=== PATIENT | female | born 1970 | race Caucasian/White ===

== ENCOUNTER 2016-11-18 19:28 | Inpatient (IN) | payer MEDICARE, MEDICAID ==
--- NOTE | 2016-11-18 19:49 | ED Physician Chart ---
Chief Complaint/HPI - Patient Information Date Seen:: 11/18/16 Time Seen:: 19:30 Chief Complaint:: Syncope History of Present Illness:: onset x one day of near-syncope and syncope episodes with vertigo and dizziness ; pt denies H/As, Neck Pain, C/P, SOB, Abd. Pain, A/N/V/D/C, fever, chills, or urinary s/s Allergies:: Allergies Allergy/AdvReac Type Severity Reaction Status Date / Time NSAIDS (Non-Steroidal AdvReac Verified 11/18/16 19:31 Anti-Inflamma Penicillins [PCN] AdvReac Verified 11/18/16 19:31 Vitals:: Vital Signs - 8 hr 11/18/16 19:31 Temp 97.2 F HR 83 RR 15 BP 122/70 O2 Sat % 97 Historian:: Patient, EMS Review:: Nurse's Note Reviewed, Old Chart Reviewed, EMS run form Reviewed, Transfer documents Reviewed Review of Systems - Review of Systems General/Constitutional: Fever, Chills, No weight loss, Weakness, No diaphoresis , No edema, No loss of appetite Skin: No skin lesions, No rash, No bruising Head: Headache, Light headed Eyes: No loss of vision, No pain, No diplopia ENT: No earache, No nasal drainage, No sore throat, No tinnitus Neck: No neck pain, No swelling, No thyromegaly, No stiffness, No mass noted Cardio Vascular: Chest pain, Palpitations, No PND, No orthopnea, No edema Pulmonary: No SOB, Cough, No sputum, No wheezing GI: Nausea, Vomiting, Diarrhea, No pain, No melena, No hematochezia, Constipation, No hematemesis G/U: No dysuria, No frequency, No hematuria [employer]: No vaginal discharge, No abnormal vaginal bleed, No contraction Musculoskeletal: No bone or joint pain, No back pain, No muscle pain Endocrine: No polyuria, No polydipsia Psychiatric: Prior psych history, Depression, Anxiety, No suicidal ideation, No homicidal ideation, Auditory hallucination, Visual hallucination Hematopoietic: No bruising, No lymphadenopathy Allergic/Immuno: No urticaria, No angioedema Neurological: Syncope, No focal symptoms, Weakness, No paresthesia, Headache, Seizure, Dizziness, No confusion, Vertigo Past Medical History - Past Medical History Obtainable: Yes Past Medical History: HTN, Seizures, Thyroid disorder, Other (Parkinson's disease; Glaucoma) Family History: Diabetes Melitus, HTN Social History: Non Smoker, No Alcohol, No Drug Use, Care Facility Surgical History: None Psychiatricy History: Depression, Schizophrenia, Bipolar Medication: Reviewed Family Medical History - Family Member Mother History Unknown: Yes Physical Exam - Physical Examination General/Constitutional: Awake, Well-developed, well-nourished, Alert, No distress, GCS 15, Non-toxic appearing, Ambulatory Head: Atraumatic Eyes: Lids, conjuctiva normal, PERRL, EOMI Skin: Nl inspection, No rash, No skin lesions, No ecchymosis, Well hydrated, No lymphadenopathy ENMT: External ears, nose nl, Nasal exam nl, Lips, teeth, gums nl Neck: Nontender, Full ROM w/o pain, No JVD, No nuchal rigidity, No bruit, No mass, No stridor Respiratory: Nl effort/Exclusion, Clear to Auscultation, No Wheeze/Rhonchi/Rales Cardio Vascular: RRR, No murmur, gallop, rubs, NL S1 S2 GI: No tenderness/rebounding/guarding, No organomegaly, No hernia, Normal BS's, Nondistended, No mass/bruits, No McBurney tenderness : No CVA tenderness Extremities: No tenderness or effusion, Full ROM, normal strength in all extremities, No edema, Normal digits & nails Neuro/Psych: Alert/oriented, DTR's symmetric, Normal sensory exam, Normal motor strength, Judgement/insight normal, Mood normal, Normal gait, No focal deficits Misc: normal gait, Normal back, No paraspinal tenderness Labs/Radiology/EKG Results - Lab Results Results: Na+: 130; Glucose: 371 - Radiology Results Results: NAD - EKG Interpretations EKG Time:: 20:00 Rate & Rhythm: 80; NSR Comments:: non-specific st-t changes; inverted t- waves ED Septic Shock - . Is Septic Shock (SBP<90, OR Lactate>4 mmol\L) present?: No - <6hrs of presentation: Vital Signs: Vital Signs - 8 hr 11/18/ 19:31 Temp 97.2 F HR 83 RR 15 BP 122/70 O2 Sat % 97 Reassessment (Disposition) - Reassessment Reassessment Condition:: Improved - Diagnosis Diagnosis:: Dx: DM; uncontrolled Diabetes Mellitus; Hyperglycemia; Hyponatremia; Syncope; Near-Syncope - Aftercare/Follow up Instructions Aftercare/Follow-Up Instructions:: Counseled pt regarding lab results/diagnosis & need follow up, Counseled pt & family regarding lab results/diagnosis & need follow up - Patient Disposition Discharge/Transfer:: Acute Care w/in this hosp Accepting Physician:: Dr. Cruz Time Called:: 2249 Time Responded:: 22:50 Admitted to:: Telemetry Spoke to:: Dr. Cruz Admitting Medical Physician:: Dr. Cruz Condition at Disposition:: Stable, Improved
[2016-11-18 19:59] LABS: % BASOPHILS 0.7 % (0.0-2.0); % EOSINOPHILS 2.2 % (0.0-5.0); % LYMPHOCYTES 26.3 % (20.0-50.0); % MONOCYTES 7.4 % (2.0-10.0); % NEUTROPHILS 63.4 % (40.0-80.0); HEMATOCRIT 40.9 % (35.0-45.0); HEMOGLOBIN 13.9 gm/dL (11.7-15.5); MEAN CELL VOLUME 88.5 fl (81-100); MEAN CORPUSCULAR HEMOGLOBIN 30.1 pg (27.0-31.0); MEAN PLATELET VOLUME 8.9 fl; NEUTROPHILE ABSOLUTE 4.8 Th/cmm (1.8-8.0); PLATELET COUNT 159 Th/cmm (150-400); RED BLOOD COUNT 4.62 Mil/cmm (3.80-5.10); RED CELL DISTRIBUTION WIDTH 12.1 % (11.5-20.0); WHITE BLOOD COUNT 7.7 Th/cmm (4.8-10.8)
[2016-11-18 20:08] LABS: INR 0.89 (0.5-1.4); PROTHROMBIN TIME (TEST) 9.2 SECONDS (9.5-11.5)
[2016-11-18 20:28] LABS: ALB/GLOB RATIO 0.8 (1.0-1.8); ALKALINE PHOSPHATASE 76 U/L (34-104); ANION GAP 13.2 (7.0-16.0); BILIRUBIN,TOTAL 0.4 mg/dL (0.3-1.0); BUN - UREA NITROGEN 8 mg/dL (7-25); CALCIUM SERUM 9.1 mg/dL (8.6-10.3); CARBON DIOXIDE 22.9 mEq/L (21.0-31.0); CHLORIDE 98 mEq/L (98-107); CHOLESTEROL 106 mg/dL (<200); CREATININE - SERUM 0.8 mg/dL (0.6-1.2); GLUCOSE 371 mg/dL (70-105); POTASSIUM SERUM 4.1 mEq/L (3.5-5.1); SGOT 13 U/L (13-39); SGPT/ALT 6 U/L (7-52); SODIUM SERUM 130 mEq/L (136-145); TRIGLYCERIDES 307 mg/dL (<150)
[2016-11-18 20:29] LABS: ACETAMINOPHEN < 10.0 ug/mL (10.0-30.0)
[2016-11-18 20:33] LABS: TROP I < 0.01 ng/mL (0.01-0.05)
[2016-11-18 20:49] LABS: URINE BILIRUBIN NEGATIVE (NEGATIVE); URINE BLOOD NEGATIVE (NEGATIVE); URINE GLUCOSE (UA) NEGATIVE (NEGATIVE); URINE KETONE NEGATIVE (NEGATIVE); URINE PROTEIN NEGATIVE (NEGATIVE); URINE UROBILINOGEN 0.2 E.U./dL (0.2 - 1.0)
[2016-11-18 20:51] LABS: BNP 35.7 pg/mL (5.0-100.0)
[2016-11-18 20:53] LABS: URINE BACTERIA NONE SEEN /hpf (NONE SEEN); URINE COLOR YELLOW; URINE EPITHELIAL CELLS NONE SEEN /lpf (FEW); URINE RBC NONE SEEN /hpf (0-5); URINE WBC NONE SEEN /hpf (0-5)
[2016-11-18 21:03] LABS: AMPHETAMINE URINE NEGATIVE (NEGATIVE); BARBITURATES URINE NEGATIVE (NEGATIVE); METHADONE URINE NEGATIVE (NEGATIVE)
[2016-11-18] MEDS ORDERED: INSULIN HUMAN REGULAR 100 UNITS/ML UNIT SUBQ ONE (22:12)
[2016-11-18] MEDS ORDERED: INSULIN HUMAN REGULAR 100 UNITS/ML UNIT ONE (22:25)
--- NOTE | 2016-11-19 03:44 | Admit Criteria Form ---
Admit Criteria Forms - Admit Criteria Diagnosis: SYNCOPE Clinical Indications for Admission to Inpatient Care ( Place 'X' for any and all applicable criteria): Admission is indicated for syncope and ANY ONE of the following (1)(2)(3)(4)(5) (6)(7) : [X ]I. Inpatient admission required rather than observation care (Also use Syncope: Observation Care Criteria as appropriate) because of ANY ONE of the following: [ ]a) Hemodynamic instability that is severe or persistent [ ]b) Cardiac arrhythmias of immediate concern identified or strongly suspected (eg, needs electrophysiologic study) [ ]c) Acute coronary syndrome identified (Also use Myocardial Infarction or Angina Criteria form ) [ ]d) Structural cardiac disorder (eg, aortic stenosis) suspected as cause that requires immediate correction [ ]e) Respiratory symptoms (eg, dyspnea, tachypnea) that are severe or persistent [ ]f) Neurologic signs or symptoms that are severe or persistent ( eg, stroke, seizures, altered mental status) [ ]g) Severe electrolyte abnormalities requiring inpatient care [ ]h) Supplemental oxygen or respiratory treatment for over 24 hrs that are performable only in acute inpatient setting [ ]i) IV fluid to replace significant ongoing (eg, for over 24 hrs ) losses (>3 L/m2 per day) [ ]j) Continuous intravenous infusion of anticoagulation, platelet inhibitor, vasoactive, or antiarrhythmic medication(15)(16) [ ]k) Pulmonary artery catheter monitoring [ ]l) Temporary pacemaker placement(17) [ ]m) Emergent cardioversion(18) [X ]n) Other conditions, treatment or monitoring requiring inpatient admission [ ]II. Suspicion of imminently dangerous cause (eg, rare causes like pericardial tamponade, pulmonary embolism) [ ]III. Syncope causing severe injury requiring hospitalization Extended stay beyond goal length of stay may be needed for(28) [ ]a) Dangerous arrhythmia(15)(23)(27)(29) [ ]b) Myocardial ischemia [ ]c) Seizure disorder [ ]d) Syncope-related injuries The original [facility] [employer] content created by [facility] has been revised. The portions of the content which have been revised are identified through the use of italic text or in bold, and [facility] has neither reviewed nor approved the modified material. All other unmodified content is copyright [facility]. Please see references footnoted in the original [facility] edition 2016 Admit Criteria Met?: Yes
[2016-11-19 04:29] VITALS: BP 127/75
[2016-11-19] MEDS: Levothyroxine 0.025 Mg Tab PO SCH (06:38)
[2016-11-19] MEDS: INSULIN ASPART SLIDING SCALE 100 UNITS/ML UNIT SUBQ SCH ×4 (06:44→21:21)
[2016-11-19 07:10] LABS: % BASOPHILS 0.6 % (0.0-2.0); % EOSINOPHILS 3.6 % (0.0-5.0); % LYMPHOCYTES 28.3 % (20.0-50.0); % MONOCYTES 10.7 % (2.0-10.0); % NEUTROPHILS 56.8 % (40.0-80.0); HEMATOCRIT 38.3 % (35.0-45.0); HEMOGLOBIN 13.2 gm/dL (11.7-15.5); MEAN CELL VOLUME 88.9 fl (81-100); MEAN CORPUSCULAR HEMOGLOBIN 30.7 pg (27.0-31.0); MEAN CORPUSCULAR HGB CONC 34.5 pg (28.0-36.0); MEAN PLATELET VOLUME 9.2 fl; NEUTROPHILE ABSOLUTE 4.1 Th/cmm (1.8-8.0); PLATELET COUNT 146 Th/cmm (150-400); RED BLOOD COUNT 4.31 Mil/cmm (3.80-5.10); RED CELL DISTRIBUTION WIDTH 12.2 % (11.5-20.0); WHITE BLOOD COUNT 7.3 Th/cmm (4.8-10.8)
--- NOTE | 2016-11-19 08:20 | Diagnostic Imaging Report ---
CT scan of the brain without intravenous contrast HISTORY: Syncope Total DLP equals CTDI equals Axial sections were obtained from the base of the skull the vertex. The exam is extremely limited and suboptimal due to excessive patient motion artifact. Poor visualization of the cerebellum and temporal lobe areas. Limited visualization of the cortical regions through the remainder of the brain. No obvious acute parenchymal abnormalities. Generalized enlargement of ventricular system and cerebral sulci reflecting atrophy. IMPRESSION: 1. Extremely limited exam due to patient motion artifact. 2. No obvious acute parenchymal abnormalities or mass effect. If possible, the exam should be repeated when the patient is compliant.
[2016-11-19] MEDS ORDERED: NORGESTIMATE ETHINYL ESTRADIOL PO SCH (09:00)
[2016-11-19] MEDS: Benztropine 1 MG TAB PO SCH (09:11)
--- NOTE | 2016-11-19 12:04 | History & Physical ---
ADMIT DATE: 11/19/2016 CHIEF COMPLAINT: Dizziness and syncope. HISTORY OF PRESENT ILLNESS: A 46-year-old female. She is a resident of [facility]. She stated that she was sent to the Emergency Room because she was placed on hold, though upon questioning the patient, she thinks she needs to be seen by psychiatrist. Upon further questioning and reviewing the chart, it has been noted that she has a history of psychotic disorder and she is taking multiple psychotropic medication, and she did have symptoms of near syncope and dizziness. The patient was worked up initially in the Emergency Room and subsequently admitted to the hospital for further treatment. I was aware that the patient was initially admitted by Dr. Chery and subsequently the patient is admitted under my service due to insurance purpose. The patient has been seen by Dr. Hilario and the patient was placed on hold for increased paranoia, angry, and verbal outbursts with delusions. PAST MEDICAL HISTORY: Remarkable for schizophrenia, glaucoma, SIADH, hypothyroidism along with Parkinson disease, and seizure disorder. MEDICATIONS AT THE TIME OF TRANSFER: The patient was taking multiple medications, which includes Tylenol, amantadine, Cogentin, Depakote, dorzolamide eyedrop, levothyroxine, propranolol, Risperdal, timolol, trazodone. ALLERGIES: THE PATIENT IS ALLERGIC TO NSAIDS. SOCIAL HISTORY: She lives in a detention. Does not smoke, does not drink. FAMILY MEDICAL HISTORY: Remarkable for diabetes and hypertension. REVIEW OF SYSTEMS: The patient currently denies any chest pain, shortness of breath, palpitations, dizziness, nausea, vomiting, diarrhea, dysuria, hematuria, hematochezia, melena. No history of any recent seizure or syncopal episode as per patient's account. PHYSICAL EXAMINATION: GENERAL: The patient is alert, awake, oriented, lying in the bed. VITAL SIGNS: Temperature 97.8, pulse is 78, respiratory rate 18, blood pressure 122/72. SKIN: Warm to touch. HEENT: Normocephalic, atraumatic. Extraocular muscles are intact. Tongue was pink and coated. Poor dentition noted. No oral lesion, no exudate. No sinus tenderness. External auditory canals and tympanic membranes are well visualized. NECK: Supple, no JVD, no hepatojugular reflux. No lymphadenopathy, thyromegaly or carotid bruit. HEART: Both heart sounds are regular. No S3, no S4, no murmur. CHEST: Lung equal in expansion, no wheezing, no crackles. ABDOMEN: Soft. No guarding, no rigidity. Liver, spleen palpable. No palpable mass. EXTREMITIES: No edema, no cyanosis. NEUROLOGIC: Alert, awake, oriented to time, place, person, 2-12 cranial nerves are intact. Power in upper and lower extremities 5+. Sensation to touch intact. [place] in both toes are going down. No cerebral sign. AVAILABLE DIAGNOSTIC DATA: Performed here in the Emergency Room was remarkable for blood sugar of 371 with glycohemoglobin ____ of 9.3. The patient is unaware that the patient is diabetic, otherwise her chemistry panels, electrolytes are within normal limits. Urinalysis is also negative. Urine drug screen is also negative. CLINICAL IMPRESSION: 1. Syncope, dizziness per Emergency Room MD. The patient stated that she does not have symptoms, very difficult to justify since the patient has significant amount of psychiatric history. The patient needs to be evaluated from a cardiac standpoint considering the patient's blood sugars are elevated and also she has Parkinson disease. In view of Parkinson disease, patients can have orthostatic hypotension and can cause them to have symptoms of dizziness as well. 2. Newly diagnosed diabetes mellitus. 3. Psychiatric disorder. 4. Hypothyroidism. 5. Hypertension. 6. Glaucoma. 7. Obesity. PLAN: The patient is admitted by me to telemetry unit. I will have Cardiology evaluation, as well as Neurology for evaluation of dizziness, syncopal episode. Psych to see the patient. Also we will start the patient on p.o. metformin along with diabetes education. Appropriate home medicine reconciliation. Psychiatrist to follow the patient. Glucoscan will be done. The patient will be followed by us and once the patient is cleared from medical standpoint, the patient will get the psychiatry treatment from Dr. Hilario. Care plan has been reviewed and discussed with staff as well. JOB# [id number]
[2016-11-19 14:41] LABS: ALB/GLOB RATIO 0.8 (1.0-1.8); ALKALINE PHOSPHATASE 63 U/L (34-104); ANION GAP 10.6 (7.0-16.0); BILIRUBIN,TOTAL 0.4 mg/dL (0.3-1.0); BUN - UREA NITROGEN 7 mg/dL (7-25); CALCIUM SERUM 9.1 mg/dL (8.6-10.3); CARBON DIOXIDE 24.5 mEq/L (21.0-31.0); CHLORIDE 97 mEq/L (98-107); CREATININE - SERUM 0.7 mg/dL (0.6-1.2); GLUCOSE 224 mg/dL (70-105); POTASSIUM SERUM 4.1 mEq/L (3.5-5.1); SGOT 13 U/L (13-39); SGPT/ALT 7 U/L (7-52); SODIUM SERUM 128 mEq/L (136-145)
--- NOTE | 2016-11-19 22:43 | Consultation ---
DATE OF CONSULTATION: 11/19/2016 PATIENT OF: Dr. Cruz. HISTORY AND PHYSICAL: This 46-year-old female patient who was transferred from [facility]. The patient apparently had near syncopal episode. The patient is psychotic and the patient is on medication for lot of psychiatric medication. No history of PND or orthopnea. PAST MEDICAL HISTORY: Schizophrenia, psychosis, glaucoma, SIADH, hypothyroid, Parkinson's disease, and seizure disorder. FAMILY HISTORY: Unremarkable. SOCIAL HISTORY: No history of smoking or alcohol abuse. ALLERGIES: No known allergies. PHYSICAL EXAMINATION: VITAL SIGNS: Blood pressure 130/80, pulse 70, respirations 20. HEAD: Normocephalic. No lumps or bumps. EYES: Pupils equal, reactive to light. Fundi show AV nicking, sclerae white, conjunctivae pink. NECK: Carotid 2+. Normal upstroke. JVD flat. Thyroid not palpable. Lymph nodes not palpable. CHEST: Shows increased AP diameter. No kyphosis, scoliosis. LUNGS: Bilateral bronchovesicular breath sounds, occasional wheeze, no rales. HEART: PMI fifth intercostal space lateral to midclavicular line. S1, S2. No S3, S4, soft systolic murmur. ABDOMEN: Soft. Liver, spleen not palpable. No organomegaly. Bowel sounds are active. NEUROLOGIC: Unremarkable. EXTREMITIES: Peripheral pulses 2+. No pedal edema. The patient's troponin level normal. CLINICAL IMPRESSION: Near syncope, psychosis, schizophrenia, glaucoma, syndrome of inappropriate antidiuretic hormone, hypothyroid, Parkinson's disease, seizure disorder. PLAN: EKG, troponin level, and echocardiogram. JOB# [id number]
[2016-11-20] MEDS: INSULIN ASPART SLIDING SCALE 100 UNITS/ML UNIT SUBQ SCH ×4 (06:54→21:54)
[2016-11-20] MEDS: Benztropine 1 MG TAB PO SCH (09:03)
--- NOTE | 2016-11-20 09:09 | General Progress Note ---
Subjective - Review of Systems Subjective: Patient is seen and examined. Patient denies any chest pain, shortness of breath, palpitation, dizziness, nausea, vomiting, diarrhea. Patient stated that she feels better. She is currently on hold by psychiatrist. Objective - Results Result Diagrams: 11/19/16 06:09 11/19/16 14:14 Recent Labs: Laboratory Last Values WBC 7.3 Th/cmm (4.8-10.8) 11/19/16 06:09 RBC 4.31 Mil/cmm (3.80-5.10) 11/19/16 06:09 Hgb 13.2 gm/dL (11.7-15.5) 11/19/16 06:09 Hct 38.3 % (35.0-45.0) 11/19/16 06:09 MCV 88.9 fl (81-100) 11/19/16 06:09 MCH 30.7 pg (27.0-31.0) 11/19/16 06:09 MCHC Differential 34.5 pg (28.0-36.0) 11/19/16 06:09 RDW 12.2 % (11.5-20.0) 11/19/16 06:09 Plt Count 146 Th/cmm (150-400) L 11/19/16 06:09 MPV 9.2 fl 11/19/16 06:09 Neutrophils % 56.8 % (40.0-80.0) 11/19/16 06:09 Lymphocytes % 28.3 % (20.0-50.0) 11/19/16 06:09 Monocytes % 10.7 % (2.0-10.0) H 11/19/16 06:09 Eosinophils % 3.6 % (0.0-5.0) 11/19/16 06:09 Basophils % 0.6 % (0.0-2.0) 11/19/16 06:09 PT 9.2 SECONDS (9.5-11.5) L 11/18/16 19:40 INR 0.89 (0.5-1.4) 11/18/16 19:40 Sodium 128 mEq/L (136-145) L 11/19/16 14:14 Potassium 4.1 mEq/L (3.5-5.1) 11/19/16 14:14 Chloride 97 mEq/L (98-107) L 11/19/16 14:14 Carbon Dioxide 24.5 mEq/L (21.0-31.0) 11/19/16 14:14 Anion Gap 10.6 (7.0-16.0) 11/19/16 14:14 BUN 7 mg/dL (7-25) 11/19/16 14:14 Creatinine 0.7 mg/dL (0.6-1.2) 11/19/16 14:14 Est GFR ( Amer) > 60.0 ml/min (>90) 11/19/16 14:14 Est GFR (Non-Af Amer) > 60.0 ml/min 11/19/16 14:14 BUN/Creatinine Ratio 10.0 11/19/16 14:14 Glucose 224 mg/dL (70-105) H 11/19/16 14:14 POC Glucose 174 MG/DL (70 - 105) H 11/20/16 06:37 Hemoglobin A1c % 9.3 % (4.0-6.0) H 11/18/16 19:40 Calcium 9.1 mg/dL (8.6-10.3) 11/19/16 14:14 Total Bilirubin 0.4 mg/dL (0.3-1.0) 11/19/16 14:14 AST 13 U/L (13-39) 11/19/16 14:14 ALT 7 U/L (7-52) 11/19/16 14:14 Alkaline Phosphatase 63 U/L (34-104) 11/19/16 14:14 Creatine Kinase 21 U/L (30-223) L 11/19/16 14:14 Troponin I ng/mL (0.01-0.05) 11/19/16 06:09 B-Natriuretic Peptide 35.7 pg/mL (5.0-100.0) 11/18/16 19:40 Total Protein 6.6 gm/dL (6.0-8.3) 11/19/16 14:14 Albumin 2.9 gm/dL (3.7-5.3) L 11/19/16 14:14 Globulin 3.7 gm/dL 11/19/16 14:14 Albumin/Globulin Ratio 0.8 (1.0-1.8) L 11/19/16 14:14 Triglycerides 307 mg/dL (<150) H 11/18/16 19:40 Cholesterol 106 mg/dL (<200) 11/18/16 19:40 LDL Cholesterol Direct 39 mg/dL (75-193) L 11/18/16 19:40 HDL Cholesterol 36 mg/dL (23-92) 11/18/16 19:40 TSH 3.82 uIU/ml (0.34-5.60) 11/18/16 19:40 Serum , Qual NEGATIVE (NEGATIVE) 11/18/16 19:40 Urine Source CLEAN C 11/18/16 19:50 Urine Color YELLOW 11/18/16 19:50 Urine Clarity CLEAR (CLEAR) 11/18/16 19:50 Urine pH 6.0 (4.6 - 8.0) 11/18/16 19:50 Ur Specific [place] 1.010 (1.005-1.030) 11/18/16 19:50 Urine Protein NEGATIVE mg/dL (NEGATIVE) 11/18/16 19:50 Urine Glucose (UA) NEGATIVE mg/dL (NEGATIVE) 11/18/16 19:50 Urine Ketones NEGATIVE mg/dL (NEGATIVE) 11/18/16 19:50 Urine Blood NEGATIVE (NEGATIVE) 11/18/16 19:50 Urine Nitrate NEGATIVE (NEGATIVE) 11/18/16 19:50 Urine Bilirubin NEGATIVE (NEGATIVE) 11/18/16 19:50 Urine Urobilinogen 0.2 E.U./dL (0.2 - 1.0) 11/18/16 19:50 Ur Leukocyte Esterase NEGATIVE (NEGATIVE) 11/18/16 19:50 Urine RBC NONE SEEN /hpf (0-5) 11/18/16 19:50 Urine WBC NONE SEEN /hpf (0-5) 11/18/16 19:50 Ur Epithelial Cells NONE SEEN /lpf (FEW) 11/18/16 19:50 Urine Bacteria NONE SEEN /hpf (NONE SEEN) 11/18/16 19:50 Salicylates < 25.0 mg/L (30.0-100.0) L 11/18/16 19:40 Urine Opiates Screen NEGATIVE (NEGATIVE) 11/18/16 19:50 Urine Methadone Screen NEGATIVE (NEGATIVE) 11/18/16 19:50 Acetaminophen < 10.0 ug/mL (10.0-30.0) L 08/16/17 19:40 Ur Barbiturates Screen NEGATIVE (NEGATIVE) 11/18/16 19:50 Valproic Acid 71.0 ug/mL (50.0-100.0) 11/18/16 19:40 Ur Tricyclics Screen NEGATIVE (NEGATIVE) 11/18/16 19:50 Ur Phencyclidine Scrn NEGATIVE (NEGATIVE) 11/18/16 19:50 Amphetamines Screen NEGATIVE (NEGATIVE) 11/18/16 19:50 U Methamphetamines Scrn NEGATIVE (NEGATIVE) 11/18/16 19:50 U Benzodiazepines Scrn NEGATIVE (NEGATIVE) 11/18/16 19:50 U Cocaine Metab Screen NEGATIVE (NEGATIVE) 11/18/16 19:50 U Cannabinoids Screen NEGATIVE (NEGATIVE) 11/18/16 19:50 Ethyl Alcohol < 10 mg/dL (0-10) 11/18/16 19:40 RPR NONREACTIVE (NONREACTIVE) 11/18/16 19:40 - Physical Exam Vitals and I&O: Vital Signs Temp 98.5 F 11/20/16 04:00 Pulse 61 11/20/16 04:00 Resp 20 11/20/16 04:00 BP 120/77 11/20/16 04:00 Pulse Ox 97 11/20/16 04:00 Intake & Output 11/19/16 11/20/16 11/20/16 18:59 06:59 18:59 Intake Total 1200 240 Balance 1200 240 Weight (lbs) 80.739 kg 82.781 kg Intake: Oral 1200 240 Other: # Voids 2 3 # Bowel Movements 1 0 Active Medications: Current Medications Acetaminophen (Tylenol) 650 mg PO Q4HR PRN PRN Reason: Pain (Mild) Stop: 01/17/17 23:09 Last Admin: 11/19/16 12:18 Dose: 650 mg Amantadine HCl (Symmetrel) 100 mg PO DAILY [facility] Stop: 01/18/17 08:59 Last Admin: 11/19/16 09:10 Dose: 100 mg Benztropine Mesylate (Cogentin) 1 mg PO DAILY [facility] Stop: 01/18/17 08:59 Last Admin: 11/19/16 09:11 Dose: 1 mg Divalproex Sodium (Depakote Er) 500 mg PO BID [facility] PRN Reason: Protocol Stop: 01/18/17 08:59 Last Admin: 11/19/16 18:06 Dose: Not Given Dorzolamide HCl (Trusopt 2% Ophth Soln) 1 drop EACH EYE TID [facility] Stop: 01/18/17 08:59 Last Admin: 11/19/16 21:22 Dose: 1 drop Insulin Aspart (Novolog Insulin Sliding Scale) 0 units SUBQ ACHS [facility] PRN Reason: Protocol Stop: 01/18/17 07:29 Last Admin: 11/20/16 06:54 Dose: 2 units Levothyroxine Sodium (Synthroid) 0.025 mg PO QDAC [facility] Stop: 01/18/17 07:29 Last Admin: 11/19/16 06:38 Dose: 0.025 mg Metformin HCl (Glucophage) 1,000 mg PO BID [facility] Stop: 01/18/17 08:59 Last Admin: 11/19/16 17:17 Dose: 1,000 mg Miscellaneous (Norgestimate-Ethinyl Estradiol [Trinessa Tablet]) 1 tab PO DAILY [facility] Stop: 01/18/17 08:59 Propranolol HCl (Inderal) 10 mg PO BID [facility] Stop: 01/18/17 08:59 Last Admin: 11/19/16 17:17 Dose: 10 mg Risperidone (Risperdal) 0.5 mg PO BID [facility] PRN Reason: Protocol Stop: 01/18/17 08:59 Last Admin: 11/19/16 18:06 Dose: Not Given Timolol Maleate (Timoptic 0.5% Oph Soln) 1 drop EACH EYE DAILY [facility] Stop: 01/18/17 08:59 Last Admin: 11/19/16 09:11 Dose: 1 drop Trazodone HCl (Desyrel) 50 mg PO HS PRN; Protocol PRN Reason: Insomnia Stop: 01/17/17 23:09 Last Admin: 11/19/16 21:55 Dose: 50 mg General: Alert, Oriented x3, Cooperative HEENT: Atraumatic, PERRLA, EOMI Neck: Supple Cardiovascular: Regular rate, Normal S1, Normal S2 Lungs: Clear to auscultation Abdomen: Bowel sounds, Soft Extremities: Other (no clubbing, cyanosis,) Skin: Rash Psych/Mental Status: Mental status NL Assessment/Plan - Assessment Assessment: Presyncopal episode. Hypothyroidism. -Parkinson's disease. Diffuse DJD. Fall risk. Hypertension. Psychotic disorder exacerbation. Glaucoma. - Plan Plan: Patient does clinically looks stable. Patient is stable for discharge to psychiatric unit for further psychiatric care. Patient will be discharged on current medication as patient is receiving.
[2016-11-20] MEDS: Levothyroxine 0.025 Mg Tab PO SCH (09:35)
--- NOTE | 2016-11-20 14:48 | Cardiology ---
11/19/[address] Cruz. M-MODE ECHOCARDIOGRAM: Mitral valve: Anterior leaflet of mitral valve shows normal excursion, EF velocity. Posterior leaflets of mitral valve shows normal excursion. Left ventricular posterior wall shows increased thickness, normal excursion. Interventricular septum shows increased thickness, normal excursion. Hypertrophy of the left ventricle, ejection fraction 60%. Left atrium normal. Aortic root shows normal dimension, normal excursion of aortic leaflets. CONCLUSION: Hypertrophy of the left ventricle, ejection fraction 60%. 2D ECHO: Long axis view showed normal sized left ventricle with hypertrophy of the left ventricle. Left atrium normal. Aortic root shows normal dimension, normal excursion of aortic leaflets. Short axis view of mitral valve normal. Short axis view of aortic valve normal. Apical four chamber view showed normal sized left ventricle with hypertrophy of the left ventricle. Left atrium normal. Right ventricular cavity, right atrium normal, no pericardial effusion. CONCLUSION: Hypertrophy of the left ventricle, ejection fraction 60%. Doppler study showed trace tricuspid regurgitation, prominent A wave consistent with poor compliance of left ventricle. JOB# [id number]
--- NOTE | 2016-11-20 21:58 | Consultation ---
DATE OF CONSULTATION: 11/19/2016 IDENTIFYING INFORMATION: The patient is a 46-year-old female. REASON FOR CONSULTATION: I was asked the patient who was seen by Dr. Hilario apparently on 11/17/2016, put on hold. The patient apparently was throwing objects of the correction where she was at [facility] and she was very agitated, ____ danger to others, grave disability. The patient was yelling and screaming. When I talked to the patient today, she was a bit calmer. She admits that she was throwing things. She was upset, was unable to tell me exactly why she was upset, she reports that she sleep well on the trazodone. She reports she hear voices, but they are not command hallucination. She reported last hear voices five days ago. Her appetite is okay. She denies any intent to harm herself or anybody. Denies feeling paranoid. PAST PSYCHIATRIC HISTORY: The patient reports she has been seen by Psychiatrist at [facility]. She is not sure what diagnosis she has. She has been on Risperdal and Depakote. MEDICAL HISTORY: Deferred to the medical doctor. The patient has seizure disorder, Parkinson's disease. FAMILY AND SOCIAL HISTORY: The patient is single, never , no children. She has been staying at a nursing facility because she felt down, she has a supportive family. She reports her grandmother had depression. She denies substance abuse. She said she has some college education. 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 Denies substance abuse problems. Denies having a legal problem. MENTAL STATUS EXAMINATION: The patient is appropriately dressed, appropriately groomed. She was alert. She was able to tell me the date, where she is, why she is here. She reports she hear voices often, but they are not command hallucination. She said she last heard it two to 3 days ago. She seems to have average intelligence. Her long and short term memory is intact. Her insight and judgment are questionable. IMPRESSION: AXIS I: Rule out bipolar disorder versus schizoaffective disorder. MEDICAL DIAGNOSES: Deferred to the medical doctor. PLAN: I would recommend to increase her Risperdal to 0.5 mg 3 times a day. The staff reports that the patient has been doing better. She is calmer in general, compliant with the medication with no side effects. The patient needs to be seen by the covering psychiatrist over the weekend ____ when she is ready to go; however, she is acting out, she needs to go to a Psych Unit. Thank you very much for allowing me to participate in the care of this most interesting lady. [facility]# [id number]
[2016-11-21] MEDS: Levothyroxine 0.025 Mg Tab PO SCH (06:44)
[2016-11-21] MEDS: INSULIN ASPART SLIDING SCALE 100 UNITS/ML UNIT SUBQ SCH ×4 (06:45→21:29)
[2016-11-21] MEDS: Benztropine 1 MG TAB PO SCH (08:37)
--- NOTE | 2016-11-21 11:40 | General Progress Note ---
Subjective - Review of Systems Subjective: Patient is seen and examined. Patient denies any chest pain, shortness of breath, palpitation, dizziness, nausea, vomiting, diarrhea. Patient stated that she feels better. She is currently seen by psychiatrist. Objective - Results Result Diagrams: 11/19/16 06:09 11/19/16 14:14 Recent Labs: Laboratory Last Values WBC 7.3 Th/cmm (4.8-10.8) 11/19/16 06:09 RBC 4.31 Mil/cmm (3.80-5.10) 11/19/16 06:09 Hgb 13.2 gm/dL (11.7-15.5) 11/19/16 06:09 Hct 38.3 % (35.0-45.0) 11/19/16 06:09 MCV 88.9 fl (81-100) 11/19/16 06:09 MCH 30.7 pg (27.0-31.0) 11/19/16 06:09 MCHC Differential 34.5 pg (28.0-36.0) 11/19/16 06:09 RDW 12.2 % (11.5-20.0) 11/19/16 06:09 Plt Count 146 Th/cmm (150-400) L 11/19/16 06:09 MPV 9.2 fl 11/19/16 06:09 Neutrophils % 56.8 % (40.0-80.0) 11/19/16 06:09 Lymphocytes % 28.3 % (20.0-50.0) 11/19/16 06:09 Monocytes % 10.7 % (2.0-10.0) H 11/19/16 06:09 Eosinophils % 3.6 % (0.0-5.0) 11/19/16 06:09 Basophils % 0.6 % (0.0-2.0) 11/19/16 06:09 PT 9.2 SECONDS (9.5-11.5) L 11/18/16 19:40 INR 0.89 (0.5-1.4) 11/18/16 19:40 Sodium 128 mEq/L (136-145) L 11/19/16 14:14 Potassium 4.1 mEq/L (3.5-5.1) 11/19/16 14:14 Chloride 97 mEq/L (98-107) L 11/19/16 14:14 Carbon Dioxide 24.5 mEq/L (21.0-31.0) 11/19/16 14:14 Anion Gap 10.6 (7.0-16.0) 11/19/16 14:14 BUN 7 mg/dL (7-25) 11/19/16 14:14 Creatinine 0.7 mg/dL (0.6-1.2) 11/19/16 14:14 Est GFR ( Amer) > 60.0 ml/min (>90) 11/19/16 14:14 Est GFR (Non-Af Amer) > 60.0 ml/min 11/19/16 14:14 BUN/Creatinine Ratio 10.0 11/19/16 14:14 Glucose 224 mg/dL (70-105) H 11/19/16 14:14 POC Glucose 179 MG/DL (70 - 105) H 11/21/16 06:42 Hemoglobin A1c % 9.3 % (4.0-6.0) H 11/18/16 19:40 Calcium 9.1 mg/dL (8.6-10.3) 11/19/16 14:14 Total Bilirubin 0.4 mg/dL (0.3-1.0) 11/19/16 14:14 AST 13 U/L (13-39) 11/19/16 14:14 ALT 7 U/L (7-52) 11/19/16 14:14 Alkaline Phosphatase 63 U/L (34-104) 11/19/16 14:14 Creatine Kinase 21 U/L (30-223) L 11/19/16 14:14 Troponin I ng/mL (0.01-0.05) 11/19/16 06:09 B-Natriuretic Peptide 35.7 pg/mL (5.0-100.0) 11/18/16 19:40 Total Protein 6.6 gm/dL (6.0-8.3) 11/19/16 14:14 Albumin 2.9 gm/dL (3.7-5.3) L 11/19/16 14:14 Globulin 3.7 gm/dL 11/19/16 14:14 Albumin/Globulin Ratio 0.8 (1.0-1.8) L 11/19/16 14:14 Triglycerides 307 mg/dL (<150) H 11/18/16 19:40 Cholesterol 106 mg/dL (<200) 11/18/16 19:40 LDL Cholesterol Direct 39 mg/dL (75-193) L 11/18/16 19:40 HDL Cholesterol 36 mg/dL (23-92) 11/18/16 19:40 TSH 3.82 uIU/ml (0.34-5.60) 11/18/16 19:40 Serum , Qual NEGATIVE (NEGATIVE) 11/18/16 19:40 Urine Source CLEAN C 11/18/16 19:50 Urine Color YELLOW 11/18/16 19:50 Urine Clarity CLEAR (CLEAR) 11/18/16 19:50 Urine pH 6.0 (4.6 - 8.0) 11/18/16 19:50 Ur Specific [place] 1.010 (1.005-1.030) 11/18/16 19:50 Urine Protein NEGATIVE mg/dL (NEGATIVE) 11/18/16 19:50 Urine Glucose (UA) NEGATIVE mg/dL (NEGATIVE) 11/18/16 19:50 Urine Ketones NEGATIVE mg/dL (NEGATIVE) 11/18/16 19:50 Urine Blood NEGATIVE (NEGATIVE) 11/18/16 19:50 Urine Nitrate NEGATIVE (NEGATIVE) 11/18/16 19:50 Urine Bilirubin NEGATIVE (NEGATIVE) 11/18/16 19:50 Urine Urobilinogen 0.2 E.U./dL (0.2 - 1.0) 11/18/16 19:50 Ur Leukocyte Esterase NEGATIVE (NEGATIVE) 11/18/16 19:50 Urine RBC NONE SEEN /hpf (0-5) 11/18/16 19:50 Urine WBC NONE SEEN /hpf (0-5) 11/18/16 19:50 Ur Epithelial Cells NONE SEEN /lpf (FEW) 11/18/16 19:50 Urine Bacteria NONE SEEN /hpf (NONE SEEN) 11/18/16 19:50 Salicylates < 25.0 mg/L (30.0-100.0) L 11/18/16 19:40 Urine Opiates Screen NEGATIVE (NEGATIVE) 11/18/16 19:50 Urine Methadone Screen NEGATIVE (NEGATIVE) 11/18/16 19:50 Acetaminophen < 10.0 ug/mL (10.0-30.0) L 11/18/16 19:40 Ur Barbiturates Screen NEGATIVE (NEGATIVE) 11/18/16 19:50 Valproic Acid 71.0 ug/mL (50.0-100.0) 11/18/16 19:40 Ur Tricyclics Screen NEGATIVE (NEGATIVE) 11/18/16 19:50 Ur Phencyclidine Scrn NEGATIVE (NEGATIVE) 11/18/16 19:50 Amphetamines Screen NEGATIVE (NEGATIVE) 11/18/16 19:50 U Methamphetamines Scrn NEGATIVE (NEGATIVE) 11/18/16 19:50 U Benzodiazepines Scrn NEGATIVE (NEGATIVE) 11/18/16 19:50 U Cocaine Metab Screen NEGATIVE (NEGATIVE) 11/18/16 19:50 U Cannabinoids Screen NEGATIVE (NEGATIVE) 11/18/16 19:50 Ethyl Alcohol < 10 mg/dL (0-10) 11/18/16 19:40 RPR NONREACTIVE (NONREACTIVE) 11/18/16 19:40 - Physical Exam Vitals and I&O: Vital Signs Temp 98.6 F 11/21/16 08:00 Pulse 98 11/21/16 08:50 Resp 20 11/21/16 08:00 BP 120/52 11/21/16 08:50 Pulse Ox 98 11/21/16 08:00 Intake & Output 11/20/16 11/21/16 11/21/16 18:59 06:59 18:59 Intake Total 700 120 Balance 700 120 Weight (lbs) 82.055 kg 81.335 kg Intake: Oral 700 120 Other: # Voids 5 4 # Bowel Movements 1 0 Active Medications: Current Medications Acetaminophen (Tylenol) 650 mg PO Q4HR PRN PRN Reason: Pain (Mild) Stop: 01/17/17 23:09 Last Admin: 11/19/16 12:18 Dose: 650 mg Amantadine HCl (Symmetrel) 100 mg PO DAILY [facility] Stop: 01/18/17 08:59 Last Admin: 11/21/16 08:37 Dose: 100 mg Benztropine Mesylate (Cogentin) 1 mg PO DAILY [facility] Stop: 01/18/17 08:59 Last Admin: 11/21/16 08:37 Dose: 1 mg Divalproex Sodium (Depakote Er) 500 mg PO BID [facility] PRN Reason: Protocol Stop: 01/18/17 08:59 Last Admin: 11/21/16 08:37 Dose: 500 mg Dorzolamide HCl (Trusopt 2% Ophth Soln) 1 drop EACH EYE TID [facility] Stop: 01/18/17 08:59 Last Admin: 11/21/16 08:38 Dose: 1 drop Insulin Aspart (Novolog Insulin Sliding Scale) 0 units SUBQ ACHS [facility] PRN Reason: Protocol Stop: 01/18/17 07:29 Last Admin: 11/21/16 11:21 Dose: 4 units Levothyroxine Sodium (Synthroid) 0.025 mg PO QDAC [facility] Stop: 01/18/17 07:29 Last Admin: 11/21/16 06:44 Dose: 0.025 mg Metformin HCl (Glucophage) 1,000 mg PO BID [facility] Stop: 01/18/17 08:59 Last Admin: 11/21/16 08:37 Dose: 1,000 mg Miscellaneous (Norgestimate-Ethinyl Estradiol [Trinessa Tablet]) 1 tab PO DAILY [facility] Stop: 01/18/17 08:59 Mupirocin (Bactroban Oint) 1 appl NS BID [facility] Stop: 11/25/16 09:01 Last Admin: 11/21/16 08:39 Dose: 1 appl Propranolol HCl (Inderal) 10 mg PO BID [facility] Stop: 01/18/17 08:59 Last Admin: 11/21/16 08:50 Dose: 10 mg Risperidone (Risperdal) 0.5 mg PO TID [facility] PRN Reason: Protocol Stop: 01/19/17 14:59 Last Admin: 11/21/16 08:37 Dose: 0.5 mg Timolol Maleate (Timoptic 0.5% Ophth Soln) 1 drop EACH EYE DAILY [facility] Stop: 01/18/17 08:59 Last Admin: 11/21/16 08:38 Dose: 1 drop Trazodone HCl (Desyrel) 50 mg PO HS PRN; Protocol PRN Reason: Insomnia Stop: 01/17/17 23:09 Last Admin: 11/20/16 21:58 Dose: 50 mg General: Alert, Oriented x3, Cooperative HEENT: Atraumatic, PERRLA, EOMI Neck: Supple Cardiovascular: Regular rate, Normal S1, Normal S2 Lungs: Clear to auscultation Abdomen: Bowel sounds, Soft Extremities: Other (no clubbing, cyanosis,) Skin: Rash Psych/Mental Status: Mental status NL Assessment/Plan - Assessment Assessment: Presyncopal episode. Hypothyroidism. -Parkinson's disease. Diffuse DJD. Fall risk. Hypertension. Psychotic disorder exacerbation. Glaucoma. - Plan Plan: Patient does clinically looks stable. Patient is stable for discharge to psychiatric unit for further psychiatric care. Patient will be discharged on current medication as patient is receiving. Patient is not clear what the psychiatrist at this time she was given the patient's until cleared by the psychiatrist to lower level of care. Nutritional Asmnt/Malnutr-PDOC - Dietary Evaluation Malnutrition Findings (Please click <Entered> for more info): Nutritional Asmnt/Malnutrition Start: 11/19/16 15: 08 Text: Status: Complete Freq: Document 11/20/16 17:51 [facility] (Rec: 11/20/16 18:00 [facility] [id number]) Nutritional Asmnt/Malnutrition Patient General Information Nutritional Screening Consult Diagnosis Syncope, newly diagnosed DM Pertinent Medical Hx/Surgical Hx Schizophrenia, glaucoma, SIADH , hypothyroidism, Parkinson's disease, seizure disorder Subjective Information Nutrition Consult for uncontrolled DM received and completed. Pt is a 46-year-old female from [facility] admitted with chief complaint of dizziness and syncope. Pt was awake and alert, able to provide nutritional hx. Pt appears obese with no signs of muscle or fat depletion. Pt reports having a fair appetite, eating 5 small meals throughout the day. Wt has been stable thought she is unsure if her UBW. Pt reports having a family hx of DM and was told many years ago that she may have borderline DM. RD offered diet/nutrition education but pt declined at this time. Current Diet Order/ Nutrition Support CCHO, low sodium, mechanical soft ground Patient / S.O Indicated Pertinent Medications Depakote, Novolog, Glucophage Pertinent Labs (11/18) Glucose 371H, A1C 9.3H, Triglyceride 307H (11/19) Na 128L, Glucose 224H, POC Glucose 131-292H Nutritional Hx/Data Height 1.57 m Height (Calculated Centimeters) 157.5 Current Weight (lbs) 82.055 kg Weight (Calculated Kilograms) 82.1 Weight (Calculated Grams) 42567.9 Usual body Weight (lbs) 181 % Usual Body Weight 100 Castor Body Weight 110 % Castor Body Weight 165 Recent Weight Change No Weight Status Obese GI Symptoms GI Symptoms None Difficult in: Chewing Food Allergies No Usual diet at home Low fat diet, small portion Skin Integrity/Comment: Ziyad 21. Skin intact. Current %PO Fair (50-74%) Estimated Nutritional Goals BEE in Kcals: Adj wt of IBW Calories/Kcals/Kg Based on IBW 50 kg Kcals Calculated 4107-8857 kcals/day (25-30 kcals/kg) Protein: Adj wt of IBW Protein g/kg: Based on IBW 50 kg Protein Calculated 50 gm/day (1 gm/kg) Fluid: ml 9847-2760 ml/day (30-35 ml/kg) or per MD/DO due to abnormal electrolytes Nutritional Problem 1. Problem Problem Altered nutrition-related laboratory value related to Etiology newly diagnosed diabetes mellitus as evidenced by Signs/Symptoms: admitting glucose 371 mg/dl and A1C 9.3%. Malnutrition Alert Protein-Calorie Malnutrition N/A Is there a minimum of two criteria No selected? Query Text:Check all the applicable criteria. A minimum of two criteria are recommended for diagnosis of either severe or non-severe malnutrition. Malnutrition Related to Morbid Obesity Malnutrition related to morbid obesity No Intervention/Recommendation Recommendations by RD Dietary Education by RD1 Decrease Calorie Intake Comments 1. Recommened mechanical soft ground, CCHO-45 GM, low sodium diet for glycemic control and to better meet estimated nutritional needs. 2. Will reinforce and educate on carbohydrate counting and DM management at follow up. Expected Outcomes/Goals Expected Outcomes/Goals Blood glucose will trend towards desired paramters. Physician Parameters for PEM Serum Albumin (g/dl) 2.4 - 3.0 (Moderate)
--- NOTE | 2016-11-21 13:15 | Progress Notes ---
DATE: 11/21/2016 SUBJECTIVE: Chart reviewed and the patient interviewed. Also discussed the patient's condition with the staff and reviewed records and labs. The patient still has periods of irritability and periods of anxiety. The patient also is still slightly confused. The patient also is still withdrawn and guarded. Also, still having mood swings. Otherwise, the patient is cooperative and compliant with taking her medications with no side effects of medications. ASSESSMENT: The patient still needs to be monitored closely under close observation. TREATMENT PLAN: Continue current psychotropic medications and continue to monitor her behavior closely. Also, supportive therapy. JOB# [id number]
[2016-11-22] MEDS: Levothyroxine 0.025 Mg Tab PO SCH (06:51)
[2016-11-22] MEDS: INSULIN ASPART SLIDING SCALE 100 UNITS/ML UNIT SUBQ SCH ×4 (06:51→21:57)
[2016-11-22] MEDS: Benztropine 1 MG TAB PO SCH (08:24)
--- NOTE | 2016-11-22 08:33 | Diagnostic Imaging Report ---
Exam: Ultrasound examination of the extracranial carotid circulation. HISTORY: Syncope Findings: Real-time ultrasound examination of the extracranial carotid circulation was performed utilizing color Doppler technique. The study demonstrates no significant stenosis or alteration of flow. Bilateral mild calcified plaque formation is noted arising from the course of the common carotid arteries into the internal and external carotid arteries at the origin without significant stenosis. Right internal carotid ratio 0.8 Left internal carotid artery ratio 1.0 Antegrade flow is noted in the vertebral circulation bilaterally. IMPRESSION: No evidence for significant stenosis or alteration of flow over extracranial carotid circulation bilaterally.
--- NOTE | 2016-11-22 08:53 | Diagnostic Imaging Report ---
CT scan of the brain without intravenous contrast HISTORY: Syncope Total DLP equals 464 CTDI equals 29.9 Axial sections were obtained from the base of the skull to the vertex. There is prominence/enlargement of the ventricular system size. Associated enlargement of cerebral sulci and subarachnoid cisterns. Findings are consistent with changes of generalized cerebral atrophy. No acute parenchymal abnormalities. No acute cerebral hemorrhage. Hypodensity is seen within the supratentorial white matter regions without mass effect. The findings may be associated with chronic small vessel ischemic disease. No extra-axial masses or abnormal fluid collections. IMPRESSION: 1. No acute abnormalities 2. Cerebral atrophy 3. Supratentorial white matter changes that may reflect chronic small vessel ischemic disease
--- NOTE | 2016-11-22 11:26 | Progress Notes ---
DATE: 11/22/2016 SUBJECTIVE: Chart reviewed and the patient interviewed. Also discussed the patient's condition with the staff and reviewed records and labs. The patient is still agitated and she is still in angry and in irritable mood. The patient also is suspicious and is still paranoid. Also, according to staff, the patient has been screaming and yelling and she is unable to follow staff directions lot. Yesterday, the patient also was severely paranoid and accusing staff. She is slightly calmer today than yesterday, but she is still angry and still paranoid. During the interview, the patient seems to be preoccupied and anxious, but is cooperative and is able to follow directions. ASSESSMENT: The patient is still psychotic, but seems to be showing slight improvement. TREATMENT PLAN: Continue monitoring her behavior and continue her current medications and continue to follow up closely. JOB# [id number]
--- NOTE | 2016-11-22 16:24 | General Progress Note ---
Subjective - Review of Systems Subjective: Patient is seen and examined. Patient denies any chest pain, shortness of breath, palpitation, dizziness, nausea, vomiting, diarrhea. Patient is very agitated. Psychiatrist note reviewed. Objective - Results Result Diagrams: 11/19/16 06:09 11/19/16 14:14 Recent Labs: Laboratory Last Values WBC 7.3 Th/cmm (4.8-10.8) 11/19/16 06:09 RBC 4.31 Mil/cmm (3.80-5.10) 11/19/16 06:09 Hgb 13.2 gm/dL (11.7-15.5) 11/19/16 06:09 Hct 38.3 % (35.0-45.0) 11/19/16 06:09 MCV 88.9 fl (81-100) 11/19/16 06:09 MCH 30.7 pg (27.0-31.0) 11/19/16 06:09 MCHC Differential 34.5 pg (28.0-36.0) 11/19/16 06:09 RDW 12.2 % (11.5-20.0) 11/19/16 06:09 Plt Count 146 Th/cmm (150-400) L 11/19/16 06:09 MPV 9.2 fl 11/19/16 06:09 Neutrophils % 56.8 % (40.0-80.0) 11/19/16 06:09 Lymphocytes % 28.3 % (20.0-50.0) 11/19/16 06:09 Monocytes % 10.7 % (2.0-10.0) H 11/19/16 06:09 Eosinophils % 3.6 % (0.0-5.0) 11/19/16 06:09 Basophils % 0.6 % (0.0-2.0) 11/19/16 06:09 PT 9.2 SECONDS (9.5-11.5) L 11/18/16 19:40 INR 0.89 (0.5-1.4) 11/18/16 19:40 Sodium 128 mEq/L (136-145) L 11/19/16 14:14 Potassium 4.1 mEq/L (3.5-5.1) 11/19/16 14:14 Chloride 97 mEq/L (98-107) L 11/19/16 14:14 Carbon Dioxide 24.5 mEq/L (21.0-31.0) 11/19/16 14:14 Anion Gap 10.6 (7.0-16.0) 11/19/16 14:14 BUN 7 mg/dL (7-25) 11/19/16 14:14 Creatinine 0.7 mg/dL (0.6-1.2) 11/19/16 14:14 Est GFR ( Amer) > 60.0 ml/min (>90) 11/19/16 14:14 Est GFR (Non-Af Amer) > 60.0 ml/min 11/19/16 14:14 BUN/Creatinine Ratio 10.0 11/19/16 14:14 Glucose 224 mg/dL (70-105) H 11/19/16 14:14 POC Glucose 192 MG/DL (70 - 105) H 11/22/16 10:58 Hemoglobin A1c % 9.3 % (4.0-6.0) H 11/18/16 19:40 Calcium 9.1 mg/dL (8.6-10.3) 11/19/16 14:14 Total Bilirubin 0.4 mg/dL (0.3-1.0) 11/19/16 14:14 AST 13 U/L (13-39) 11/19/16 14:14 ALT 7 U/L (7-52) 11/19/16 14:14 Alkaline Phosphatase 63 U/L (34-104) 11/19/16 14:14 Creatine Kinase 21 U/L (30-223) L 11/19/16 14:14 Troponin I ng/mL (0.01-0.05) 11/19/16 06:09 B-Natriuretic Peptide 35.7 pg/mL (5.0-100.0) 11/18/16 19:40 Total Protein 6.6 gm/dL (6.0-8.3) 11/19/16 14:14 Albumin 2.9 gm/dL (3.7-5.3) L 11/19/16 14:14 Globulin 3.7 gm/dL 11/19/16 14:14 Albumin/Globulin Ratio 0.8 (1.0-1.8) L 11/19/16 14:14 Triglycerides 307 mg/dL (<150) H 11/18/16 19:40 Cholesterol 106 mg/dL (<200) 11/18/16 19:40 LDL Cholesterol Direct 39 mg/dL (75-193) L 11/18/16 19:40 HDL Cholesterol 36 mg/dL (23-92) 11/18/16 19:40 TSH 3.82 uIU/ml (0.34-5.60) 11/18/16 19:40 Serum , Qual NEGATIVE (NEGATIVE) 11/18/16 19:40 Urine Source CLEAN C 11/18/16 19:50 Urine Color YELLOW 11/18/16 19:50 Urine Clarity CLEAR (CLEAR) 11/18/16 19:50 Urine pH 6.0 (4.6 - 8.0) 11/18/16 19:50 Ur Specific [place] 1.010 (1.005-1.030) 11/18/16 19:50 Urine Protein NEGATIVE mg/dL (NEGATIVE) 11/18/16 19:50 Urine Glucose (UA) NEGATIVE mg/dL (NEGATIVE) 11/18/16 19:50 Urine Ketones NEGATIVE mg/dL (NEGATIVE) 11/18/16 19:50 Urine Blood NEGATIVE (NEGATIVE) 11/18/16 19:50 Urine Nitrate NEGATIVE (NEGATIVE) 11/18/16 19:50 Urine Bilirubin NEGATIVE (NEGATIVE) 11/18/16 19:50 Urine Urobilinogen 0.2 E.U./dL (0.2 - 1.0) 11/18/16 19:50 Ur Leukocyte Esterase NEGATIVE (NEGATIVE) 11/18/16 19:50 Urine RBC NONE SEEN /hpf (0-5) 11/18/16 19:50 Urine WBC NONE SEEN /hpf (0-5) 11/18/16 19:50 Ur Epithelial Cells NONE SEEN /lpf (FEW) 11/18/16 19:50 Urine Bacteria NONE SEEN /hpf (NONE SEEN) 11/18/16 19:50 Salicylates < 25.0 mg/L (30.0-100.0) L 11/18/16 19:40 Urine Opiates Screen NEGATIVE (NEGATIVE) 11/18/16 19:50 Urine Methadone Screen NEGATIVE (NEGATIVE) 11/18/16 19:50 Acetaminophen < 10.0 ug/mL (10.0-30.0) L 11/18/16 19:40 Ur Barbiturates Screen NEGATIVE (NEGATIVE) 11/18/16 19:50 Valproic Acid 71.0 ug/mL (50.0-100.0) 11/18/16 19:40 Ur Tricyclics Screen NEGATIVE (NEGATIVE) 11/18/16 19:50 Ur Phencyclidine Scrn NEGATIVE (NEGATIVE) 11/18/16 19:50 Amphetamines Screen NEGATIVE (NEGATIVE) 11/18/16 19:50 U Methamphetamines Scrn NEGATIVE (NEGATIVE) 11/18/16 19:50 U Benzodiazepines Scrn NEGATIVE (NEGATIVE) 11/18/16 19:50 U Cocaine Metab Screen NEGATIVE (NEGATIVE) 11/18/16 19:50 U Cannabinoids Screen NEGATIVE (NEGATIVE) 11/18/16 19:50 Ethyl Alcohol < 10 mg/dL (0-10) 11/18/16 19:40 RPR NONREACTIVE (NONREACTIVE) 11/18/16 19:40 - Physical Exam Vitals and I&O: Vital Signs Temp 98.5 F 11/22/16 12:00 Pulse 86 11/22/16 12:00 Resp 18 11/22/16 12:00 BP 125/75 11/22/16 12:00 Pulse Ox 98 11/22/16 12:00 Intake & Output 11/21/16 11/22/16 11/22/16 18:59 06:59 18:59 Intake Total 1950 150 Balance 1950 150 Weight (lbs) 81.335 kg 80.739 kg Intake: Oral 1950 150 Other: # Voids 4 2 # Bowel Movements 2 0 Stool Characteristics Soft Soft Soft Foamy Foamy Foamy Active Medications: Current Medications Acetaminophen (Tylenol) 650 mg PO Q4HR PRN PRN Reason: Pain (Mild) Stop: 01/17/17 23:09 Last Admin: 11/19/16 12:18 Dose: 650 mg Amantadine HCl (Symmetrel) 100 mg PO DAILY [facility] Stop: 01/18/17 08:59 Last Admin: 11/22/16 08:24 Dose: 100 mg Benztropine Mesylate (Cogentin) 1 mg PO DAILY [facility] Stop: 01/18/17 08:59 Last Admin: 11/22/16 08:24 Dose: 1 mg Divalproex Sodium (Depakote Er) 500 mg PO BID [facility] PRN Reason: Protocol Stop: 01/18/17 08:59 Last Admin: 11/22/16 08:23 Dose: 500 mg Dorzolamide HCl (Trusopt 2% Ophth Soln) 1 drop EACH EYE TID [facility] Stop: 01/18/17 08:59 Last Admin: 11/22/16 13:50 Dose: 1 drop Insulin Aspart (Novolog Insulin Sliding Scale) 0 units SUBQ ACHS [facility] PRN Reason: Protocol Stop: 01/18/17 07:29 Last Admin: 11/22/16 12:15 Dose: 2 units Levothyroxine Sodium (Synthroid) 0.025 mg PO QDAC [facility] Stop: 01/18/17 07:29 Last Admin: 11/22/16 06:51 Dose: 0.025 mg Metformin HCl (Glucophage) 1,000 mg PO BID [facility] Stop: 01/18/17 08:59 Last Admin: 11/22/16 08:24 Dose: 1,000 mg Miscellaneous (Norgestimate-Ethinyl Estradiol [Trinessa Tablet]) 1 tab PO DAILY [facility] Stop: 01/18/17 08:59 Mupirocin (Bactroban Oint) 1 appl NS BID [facility] Stop: 11/25/16 09:01 Last Admin: 11/22/16 08:25 Dose: 1 appl Propranolol HCl (Inderal) 10 mg PO BID [facility] Stop: 01/18/17 08:59 Last Admin: 11/22/16 08:24 Dose: 10 mg Risperidone (Risperdal) 0.5 mg PO TID [facility] PRN Reason: Protocol Stop: 01/19/17 14:59 Last Admin: 11/22/16 13:50 Dose: 0.5 mg Timolol Maleate (Timoptic 0.5% Ophth Soln) 1 drop EACH EYE DAILY [facility] Stop: 01/18/17 08:59 Last Admin: 11/22/16 08:29 Dose: 1 drop Trazodone HCl (Desyrel) 50 mg PO HS PRN; Protocol PRN Reason: Insomnia Stop: 01/17/17 23:09 Last Admin: 11/21/16 21:35 Dose: 50 mg General: Alert, Oriented x3, Cooperative HEENT: Atraumatic, PERRLA, EOMI Neck: Supple Cardiovascular: Regular rate, Normal S1, Normal S2 Lungs: Clear to auscultation Abdomen: Bowel sounds, Soft Extremities: Other (no clubbing, cyanosis,) Skin: Rash Psych/Mental Status: Mental status NL Assessment/Plan - Assessment Assessment: Presyncopal episode. Hypothyroidism. -Parkinson's disease. Diffuse DJD. Fall risk. Hypertension. Psychotic disorder exacerbation. Glaucoma. - Plan Plan: Psych follow-up. Neurology follow-up. General nursing care. Symptoms management. Fall precautions. Continue current treatment plan for her chronic illnesses. Patient is stable for discharge to psych facility. Nutritional Asmnt/Malnutr-PDOC - Dietary Evaluation Malnutrition Findings (Please click <Entered> for more info): Nutritional Asmnt/Malnutrition Start: 11/19/16 15: 08 Text: Status: Complete Freq: Document 11/20/16 17:51 [facility] (Rec: 11/20/16 18:00 [facility] [id number]) Nutritional Asmnt/Malnutrition Patient General Information Nutritional Screening Consult Diagnosis Syncope, newly diagnosed DM Pertinent Medical Hx/Surgical Hx Schizophrenia, glaucoma, SIADH , hypothyroidism, Parkinson's disease, seizure disorder Subjective Information Nutrition Consult for uncontrolled DM received and completed. Pt is a 46-year-old female from [facility] admitted with chief complaint of dizziness and syncope. Pt was awake and alert, able to provide nutritional hx. Pt appears obese with no signs of muscle or fat depletion. Pt reports having a fair appetite, eating 5 small meals throughout the day. Wt has been stable thought she is unsure if her UBW. Pt reports having a family hx of DM and was told many years ago that she may have borderline DM. RD offered diet/nutrition education but pt declined at this time. Current Diet Order/ Nutrition Support CCHO, low sodium, mechanical soft ground Patient / S.O Indicated Pertinent Medications Depakote, Novolog, Glucophage Pertinent Labs (11/18) Glucose 371H, A1C 9.3H, Triglyceride 307H (11/19) Na 128L, Glucose 224H, POC Glucose 131-292H Nutritional Hx/Data Height 1.57 m Height (Calculated Centimeters) 157.5 Current Weight (lbs) 82.055 kg Weight (Calculated Kilograms) 82.1 Weight (Calculated Grams) 64456.9 Usual body Weight (lbs) 181 % Usual Body Weight 100 [place] Body Weight 110 % [place] Body Weight 165 Recent Weight Change No Weight Status Obese GI Symptoms GI Symptoms None Difficult in: Chewing Food Allergies No Usual diet at home Low fat diet, small portion Skin Integrity/Comment: Ziyad Briscoe. Skin intact. Current %PO Fair (50-74%) Estimated Nutritional Goals BEE in Kcals: Adj wt of IBW Calories/Kcals/Kg Based on IBW 50 kg Kcals Calculated 9512-9633 kcals/day (25-30 kcals/kg) Protein: Adj wt of IBW Protein g/kg: Based on IBW 50 kg Protein Calculated 50 gm/day (1 gm/kg) Fluid: ml 6620-5975 ml/day (30-35 ml/kg) or per MD/DO due to abnormal electrolytes Nutritional Problem 1. Problem Problem Altered nutrition-related laboratory value related to Etiology newly diagnosed diabetes mellitus as evidenced by Signs/Symptoms: admitting glucose 371 mg/dl and A1C 9.3%. Malnutrition Alert Protein-Calorie Malnutrition N/A Is there a minimum of two criteria No selected? Query Text:Check all the applicable criteria. A minimum of two criteria are recommended for diagnosis of either severe or non-severe malnutrition. Malnutrition Related to Morbid Obesity Malnutrition related to morbid obesity No Intervention/Recommendation Recommendations by RD Dietary Education by RD1 Decrease Calorie Intake Comments 1. Recommened mechanical soft ground, CCHO-45 GM, low sodium diet for glycemic control and to better meet estimated nutritional needs. 2. Will reinforce and educate on carbohydrate counting and DM management at follow up. Expected Outcomes/Goals Expected Outcomes/Goals Blood glucose will trend towards desired paramters. Physician Parameters for PEM Serum Albumin (g/dl) 2.4 - 3.0 (Moderate)
[2016-11-23] MEDS: Levothyroxine 0.025 Mg Tab PO SCH (06:51)
[2016-11-23] MEDS: INSULIN ASPART SLIDING SCALE 100 UNITS/ML UNIT SUBQ SCH ×4 (07:37→21:26)
[2016-11-23] MEDS: Benztropine 1 MG TAB PO SCH (09:04)
--- NOTE | 2016-11-23 09:12 | General Progress Note ---
Subjective - Review of Systems Subjective: Patient is seen and examined. Patient denies any chest pain, shortness of breath, palpitation, dizziness, nausea, vomiting, diarrhea. Awaiting psych input for DC planning. Objective - Results Result Diagrams: 11/19/16 06:09 11/19/16 14:14 Recent Labs: Laboratory Last Values WBC 7.3 Th/cmm (4.8-10.8) 11/19/16 06:09 RBC 4.31 Mil/cmm (3.80-5.10) 11/19/16 06:09 Hgb 13.2 gm/dL (11.7-15.5) 11/19/16 06:09 Hct 38.3 % (35.0-45.0) 11/19/16 06:09 MCV 88.9 fl (81-100) 11/19/16 06:09 MCH 30.7 pg (27.0-31.0) 11/19/16 06:09 MCHC Differential 34.5 pg (28.0-36.0) 11/19/16 06:09 RDW 12.2 % (11.5-20.0) 11/19/16 06:09 Plt Count 146 Th/cmm (150-400) L 11/19/16 06:09 MPV 9.2 fl 11/19/16 06:09 Neutrophils % 56.8 % (40.0-80.0) 11/19/16 06:09 Lymphocytes % 28.3 % (20.0-50.0) 11/19/16 06:09 Monocytes % 10.7 % (2.0-10.0) H 11/19/16 06:09 Eosinophils % 3.6 % (0.0-5.0) 11/19/16 06:09 Basophils % 0.6 % (0.0-2.0) 11/19/16 06:09 PT 9.2 SECONDS (9.5-11.5) L 11/18/16 19:40 INR 0.89 (0.5-1.4) 11/18/16 19:40 Sodium 128 mEq/L (136-145) L 11/19/16 14:14 Potassium 4.1 mEq/L (3.5-5.1) 11/19/16 14:14 Chloride 97 mEq/L (98-107) L 11/19/16 14:14 Carbon Dioxide 24.5 mEq/L (21.0-31.0) 11/19/16 14:14 Anion Gap 10.6 (7.0-16.0) 11/19/16 14:14 BUN 7 mg/dL (7-25) 11/19/16 14:14 Creatinine 0.7 mg/dL (0.6-1.2) 11/19/16 14:14 Est GFR ( Amer) > 60.0 ml/min (>90) 11/19/16 14:14 Est GFR (Non-Af Amer) > 60.0 ml/min 11/19/16 14:14 BUN/Creatinine Ratio 10.0 11/19/16 14:14 Glucose 224 mg/dL (70-105) H 11/19/16 14:14 POC Glucose 142 MG/DL (70 - 105) H 11/23/16 06:28 Hemoglobin A1c % 9.3 % (4.0-6.0) H 11/18/16 19:40 Calcium 9.1 mg/dL (8.6-10.3) 11/19/16 14:14 Total Bilirubin 0.4 mg/dL (0.3-1.0) 11/19/16 14:14 AST 13 U/L (13-39) 11/19/16 14:14 ALT 7 U/L (7-52) 11/19/16 14:14 Alkaline Phosphatase 63 U/L (34-104) 11/19/16 14:14 Creatine Kinase 21 U/L (30-223) L 11/19/16 14:14 Troponin I ng/mL (0.01-0.05) 11/19/16 06:09 B-Natriuretic Peptide 35.7 pg/mL (5.0-100.0) 11/18/16 19:40 Total Protein 6.6 gm/dL (6.0-8.3) 11/19/16 14:14 Albumin 2.9 gm/dL (3.7-5.3) L 11/19/16 14:14 Globulin 3.7 gm/dL 11/19/16 14:14 Albumin/Globulin Ratio 0.8 (1.0-1.8) L 11/19/16 14:14 Triglycerides 307 mg/dL (<150) H 11/18/16 19:40 Cholesterol 106 mg/dL (<200) 11/18/16 19:40 LDL Cholesterol Direct 39 mg/dL (75-193) L 11/18/16 19:40 HDL Cholesterol 36 mg/dL (23-92) 11/18/16 19:40 TSH 3.82 uIU/ml (0.34-5.60) 11/18/16 19:40 Serum , Qual NEGATIVE (NEGATIVE) 11/18/16 19:40 Urine Source CLEAN C 11/18/16 19:50 Urine Color YELLOW 11/18/16 19:50 Urine Clarity CLEAR (CLEAR) 11/18/16 19:50 Urine pH 6.0 (4.6 - 8.0) 11/18/16 19:50 Ur Specific [place] 1.010 (1.005-1.030) 11/18/16 19:50 Urine Protein NEGATIVE mg/dL (NEGATIVE) 11/18/16 19:50 Urine Glucose (UA) NEGATIVE mg/dL (NEGATIVE) 11/18/16 19:50 Urine Ketones NEGATIVE mg/dL (NEGATIVE) 11/18/16 19:50 Urine Blood NEGATIVE (NEGATIVE) 11/18/16 19:50 Urine Nitrate NEGATIVE (NEGATIVE) 11/18/16 19:50 Urine Bilirubin NEGATIVE (NEGATIVE) 11/18/16 19:50 Urine Urobilinogen 0.2 E.U./dL (0.2 - 1.0) 11/18/16 19:50 Ur Leukocyte Esterase NEGATIVE (NEGATIVE) 11/18/16 19:50 Urine RBC NONE SEEN /hpf (0-5) 11/18/16 19:50 Urine WBC NONE SEEN /hpf (0-5) 11/18/16 19:50 Ur Epithelial Cells NONE SEEN /lpf (FEW) 11/18/16 19:50 Urine Bacteria NONE SEEN /hpf (NONE SEEN) 11/18/16 19:50 Salicylates < 25.0 mg/L (30.0-100.0) L 11/18/16 19:40 Urine Opiates Screen NEGATIVE (NEGATIVE) 11/18/16 19:50 Urine Methadone Screen NEGATIVE (NEGATIVE) 11/18/16 19:50 Acetaminophen < 10.0 ug/mL (10.0-30.0) L 11/18/16 19:40 Ur Barbiturates Screen NEGATIVE (NEGATIVE) 11/18/16 19:50 Valproic Acid 71.0 ug/mL (50.0-100.0) 11/18/16 19:40 Ur Tricyclics Screen NEGATIVE (NEGATIVE) 11/18/16 19:50 Ur Phencyclidine Scrn NEGATIVE (NEGATIVE) 11/18/16 19:50 Amphetamines Screen NEGATIVE (NEGATIVE) 11/18/16 19:50 U Methamphetamines Scrn NEGATIVE (NEGATIVE) 11/18/16 19:50 U Benzodiazepines Scrn NEGATIVE (NEGATIVE) 11/18/16 19:50 U Cocaine Metab Screen NEGATIVE (NEGATIVE) 11/18/16 19:50 U Cannabinoids Screen NEGATIVE (NEGATIVE) 11/18/16 19:50 Ethyl Alcohol < 10 mg/dL (0-10) 11/18/16 19:40 RPR NONREACTIVE (NONREACTIVE) 11/18/16 19:40 - Physical Exam Vitals and I&O: Vital Signs Temp 97.2 F 11/23/16 04:00 Pulse 83 11/23/16 04:00 Resp 18 11/23/16 04:00 BP 139/86 11/23/16 04:00 Pulse Ox 96 11/23/16 04:00 Intake & Output 11/22/16 11/23/16 11/23/16 18:59 06:59 18:59 Intake Total 1800 200 Balance 1800 200 Weight (lbs) 80.739 kg 80.739 kg Intake: Oral 1800 200 Other: # Voids 4 3 # Bowel Movements 1 1 Stool Characteristics Soft Soft Foamy Foamy Active Medications: Current Medications Acetaminophen (Tylenol) 650 mg PO Q4HR PRN PRN Reason: Pain (Mild) Stop: 01/17/17 23:09 Last Admin: 11/19/16 12:18 Dose: 650 mg Amantadine HCl (Symmetrel) 100 mg PO DAILY [facility] Stop: 01/18/17 08:59 Last Admin: 11/23/16 09:03 Dose: 100 mg Benztropine Mesylate (Cogentin) 1 mg PO DAILY [facility] Stop: 01/18/17 08:59 Last Admin: 11/23/16 09:04 Dose: 1 mg Divalproex Sodium (Depakote Er) 500 mg PO BID [facility] PRN Reason: Protocol Stop: 01/18/17 08:59 Last Admin: 11/23/16 09:04 Dose: 500 mg Dorzolamide HCl (Trusopt 2% Ophth Soln) 1 drop EACH EYE TID [facility] Stop: 01/18/17 08:59 Last Admin: 11/23/16 09:08 Dose: 1 drop Insulin Aspart (Novolog Insulin Sliding Scale) 0 units SUBQ ACHS [facility] PRN Reason: Protocol Stop: 01/18/17 07:29 Last Admin: 11/23/16 07:37 Dose: Not Given Levothyroxine Sodium (Synthroid) 0.025 mg PO QDAC [facility] Stop: 01/18/17 07:29 Last Admin: 11/23/16 06:51 Dose: 0.025 mg Metformin HCl (Glucophage) 1,000 mg PO BID [facility] Stop: 01/18/17 08:59 Last Admin: 11/23/16 09:03 Dose: 1,000 mg Miscellaneous (Norgestimate-Ethinyl Estradiol [Trinessa Tablet]) 1 tab PO DAILY [facility] Stop: 01/18/17 08:59 Mupirocin (Bactroban Oint) 1 appl NS BID [facility] Stop: 11/25/16 09:01 Last Admin: 11/23/16 09:09 Dose: 1 appl Propranolol HCl (Inderal) 10 mg PO BID [facility] Stop: 01/18/17 08:59 Last Admin: 11/22/16 16:26 Dose: 10 mg Risperidone (Risperdal) 0.5 mg PO TID [facility] PRN Reason: Protocol Stop: 01/19/17 14:59 Last Admin: 11/23/16 09:03 Dose: 0.5 mg Timolol Maleate (Timoptic 0.5% Ophth Soln) 1 drop EACH EYE DAILY [facility] Stop: 01/18/17 08:59 Last Admin: 11/23/16 09:08 Dose: 1 drop Trazodone HCl (Desyrel) 50 mg PO HS PRN; Protocol PRN Reason: Insomnia Stop: 01/17/17 23:09 Last Admin: 11/22/16 21:07 Dose: 50 mg General: Alert, Oriented x3, Cooperative HEENT: Atraumatic, PERRLA, EOMI Neck: Supple Cardiovascular: Regular rate, Normal S1, Normal S2 Lungs: Clear to auscultation Abdomen: Bowel sounds, Soft Extremities: Other (no cyanosis,clubbing,edema.) Skin: Rash Psych/Mental Status: Mental status NL Assessment/Plan - Assessment Assessment: Presyncopal episode. Hypothyroidism. Parkinson's disease. Diffuse DJD. Fall risk. Hypertension. Psychiatric disorder exacerbation. Glaucoma. - Plan Plan: Psych follow-up. Neurology follow-up. General nursing care. DC telemetery. Symptoms management. Fall precautions. Continue current treatment plan for her chronic illnesses. Patient is stable for discharge to psych facility. Nutritional Asmnt/Malnutr-PDOC - Dietary Evaluation Malnutrition Findings (Please click <Entered> for more info): Nutritional Asmnt/Malnutrition Start: 11/19/16 15: 08 Text: Status: Complete Freq: Document 11/20/16 17:51 [facility] (Rec: 11/20/16 18:00 [facility] [id number]) Nutritional Asmnt/Malnutrition Patient General Information Nutritional Screening Consult Diagnosis Syncope, newly diagnosed DM Pertinent Medical Hx/Surgical Hx Schizophrenia, glaucoma, SIADH , hypothyroidism, Parkinson's disease, seizure disorder Subjective Information Nutrition Consult for uncontrolled DM received and completed. Pt is a 46-year-old female from [facility] [address] admitted with chief complaint of dizziness and syncope. Pt was awake and alert, able to provide nutritional hx. Pt appears obese with no signs of muscle or fat depletion. Pt reports having a fair appetite, eating 5 small meals throughout the day. Wt has been stable thought she is unsure if her UBW. Pt reports having a family hx of DM and was told many years ago that she may have borderline DM. RD offered diet/nutrition education but pt declined at this time. Current Diet Order/ Nutrition Support CCHO, low sodium, mechanical soft ground Patient / S.O Indicated Pertinent Medications Depakote, Novolog, Glucophage Pertinent Labs (11/18) Glucose 371H, A1C 9.3H, Triglyceride 307H (11/19) Na 128L, Glucose 224H, POC Glucose 131-292H Nutritional Hx/Data Height 1.57 m Height (Calculated Centimeters) 157.5 Current Weight (lbs) 82.055 kg Weight (Calculated Kilograms) 82.1 Weight (Calculated Grams) 06886.9 Usual body Weight (lbs) 181 % Usual Body Weight 100 [place] Body Weight 110 % [place] Body Weight 165 Recent Weight Change No Weight Status Obese GI Symptoms GI Symptoms None Difficult in: Chewing Food Allergies No Usual diet at home Low fat diet, small portion Skin Integrity/Comment: Ziyad Briscoe. Skin intact. Current %PO Fair (50-74%) Estimated Nutritional Goals BEE in Kcals: Adj wt of IBW Calories/Kcals/Kg Based on IBW 50 kg Kcals Calculated 6502-7695 kcals/day (25-30 kcals/kg) Protein: Adj wt of IBW Protein g/kg: Based on IBW 50 kg Protein Calculated 50 gm/day (1 gm/kg) Fluid: ml 6600-4001 ml/day (30-35 ml/kg) or per MD/DO due to abnormal electrolytes Nutritional Problem 1. Problem Problem Altered nutrition-related laboratory value related to Etiology newly diagnosed diabetes mellitus as evidenced by Signs/Symptoms: admitting glucose 371 mg/dl and A1C 9.3%. Malnutrition Alert Protein-Calorie Malnutrition N/A Is there a minimum of two criteria No selected? Query Text:Check all the applicable criteria. A minimum of two criteria are recommended for diagnosis of either severe or non-severe malnutrition. Malnutrition Related to Morbid Obesity Malnutrition related to morbid obesity No Intervention/Recommendation Recommendations by RD Dietary Education by RD1 Decrease Calorie Intake Comments 1. Recommened mechanical soft ground, CCHO-45 GM, low sodium diet for glycemic control and to better meet estimated nutritional needs. 2. Will reinforce and educate on carbohydrate counting and DM management at follow up. Expected Outcomes/Goals Expected Outcomes/Goals Blood glucose will trend towards desired paramters. Physician Parameters for PEM Serum Albumin (g/dl) 2.4 - 3.0 (Moderate)
--- NOTE | 2016-11-23 14:17 | Consultation ---
DATE OF CONSULTATION: 11/23/2016 HISTORY OF PRESENT ILLNESS: The patient is a 46-year-old. The patient admitted because of abnormal behavior. The patient had an episode where she felt kind of lightheaded, felt kind of a little bit dizzy. She did not pass out. ____ of any headache. No marked paralysis on one side or the other. The patient seemed fine at the moment. She has been getting up. No repeat episodes. PAST MEDICAL HISTORY: Psychosis. The patient with schizophrenia, SIADH, hypothyroidism. The patient with tremor with some parkinsonian features. The patient with seizures. No seizures ____. MEDICATIONS: As per reconciliation. ALLERGIES: NSAIDs. SOCIAL HISTORY: Lives in a fpc. Does not smoke or drink. REVIEW OF SYSTEMS: Twelve point negative except for above. PHYSICAL EXAMINATION: VITAL SIGNS: Temperature 98.2, blood pressure 130/70, pulse is 76. NECK: Supple. No bruits. HEART: Sounds S1, S2. LUNGS: Clear. NEUROLOGIC: The patient is awake. She answers questions. She knew what day, what month, what year. She, in fact, knew the date. Cranial: Pupils react to light. Full eye movement. No nystagmus. No facial weakness. Motor: She will lift both arms up and will lift both legs up. Reflexes 1-2+. INVESTIGATIONS: CT scan head negative. Carotid Doppler negative. IMPRESSION: 1. The patient with syncope. Possible multiple etiology could be medications. No definite neurological deficits. Clinically, the patient has parkinsonian features, probably most likely from medications, though we will need to keep ____. 2. History of hypothyroidism. 3. Schizophrenia. 4. Glaucoma. 5. Obesity. JOB# [id number]
--- NOTE | 2016-11-23 21:00 | Progress Notes ---
DATE: 11/23/2016 SUBJECTIVE: The patient was seen, chart reviewed, and discussed with staff. The patient remains anxious, irritable, still attests to voices, hallucinations, perceptual disturbances, remains withdrawn, guarded, wants to leave, but has no idea how she will provide for basic food, clothing, and skilled nursing. ASSESSMENT: The patient needs to be monitored. She remains still with psychosis and wants to leave. Currently considered gravely disabled. PLAN: We will initiate a 14-day hold given the severity of her ongoing psychotic symptoms. She is not safe for discharge at this time. [facility]# [id number]
[2016-11-24] MEDS: INSULIN ASPART SLIDING SCALE 100 UNITS/ML UNIT SUBQ SCH ×4 (07:07→21:47)
[2016-11-24] MEDS: Levothyroxine 0.025 Mg Tab PO SCH (07:08)
--- NOTE | 2016-11-24 08:55 | General Progress Note ---
Subjective - Review of Systems Subjective: Patient is seen and examined. Patient denies any chest pain, shortness of breath, palpitation, dizziness, nausea, vomiting, diarrhea. Psych input noted. Patient is placing on 14 days hold. Objective - Results Result Diagrams: 11/19/16 06:09 11/19/16 14:14 Recent Labs: Laboratory Last Values WBC 7.3 Th/cmm (4.8-10.8) 11/19/16 06:09 RBC 4.31 Mil/cmm (3.80-5.10) 11/19/16 06:09 Hgb 13.2 gm/dL (11.7-15.5) 11/19/16 06:09 Hct 38.3 % (35.0-45.0) 11/19/16 06:09 MCV 88.9 fl (81-100) 11/19/16 06:09 MCH 30.7 pg (27.0-31.0) 11/19/16 06:09 MCHC Differential 34.5 pg (28.0-36.0) 11/19/16 06:09 RDW 12.2 % (11.5-20.0) 11/19/16 06:09 Plt Count 146 Th/cmm (150-400) L 11/19/16 06:09 MPV 9.2 fl 11/19/16 06:09 Neutrophils % 56.8 % (40.0-80.0) 11/19/16 06:09 Lymphocytes % 28.3 % (20.0-50.0) 11/19/16 06:09 Monocytes % 10.7 % (2.0-10.0) H 11/19/16 06:09 Eosinophils % 3.6 % (0.0-5.0) 11/19/16 06:09 Basophils % 0.6 % (0.0-2.0) 11/19/16 06:09 PT 9.2 SECONDS (9.5-11.5) L 11/18/16 19:40 INR 0.89 (0.5-1.4) 11/18/16 19:40 Sodium 128 mEq/L (136-145) L 11/19/16 14:14 Potassium 4.1 mEq/L (3.5-5.1) 11/19/16 14:14 Chloride 97 mEq/L (98-107) L 11/19/16 14:14 Carbon Dioxide 24.5 mEq/L (21.0-31.0) 11/19/16 14:14 Anion Gap 10.6 (7.0-16.0) 11/19/16 14:14 BUN 7 mg/dL (7-25) 11/19/16 14:14 Creatinine 0.7 mg/dL (0.6-1.2) 11/19/16 14:14 Est GFR ( Amer) > 60.0 ml/min (>90) 11/19/16 14:14 Est GFR (Non-Af Amer) > 60.0 ml/min 11/19/16 14:14 BUN/Creatinine Ratio 10.0 11/19/16 14:14 Glucose 224 mg/dL (70-105) H 11/19/16 14:14 POC Glucose 167 MG/DL (70 - 105) H 11/24/16 07:04 Hemoglobin A1c % 9.3 % (4.0-6.0) H 11/18/16 19:40 Calcium 9.1 mg/dL (8.6-10.3) 11/19/16 14:14 Total Bilirubin 0.4 mg/dL (0.3-1.0) 11/19/16 14:14 AST 13 U/L (13-39) 11/19/16 14:14 ALT 7 U/L (7-52) 11/19/16 14:14 Alkaline Phosphatase 63 U/L (34-104) 11/19/16 14:14 Creatine Kinase 21 U/L (30-223) L 11/19/16 14:14 Troponin I ng/mL (0.01-0.05) 11/19/16 06:09 B-Natriuretic Peptide 35.7 pg/mL (5.0-100.0) 11/18/16 19:40 Total Protein 6.6 gm/dL (6.0-8.3) 11/19/16 14:14 Albumin 2.9 gm/dL (3.7-5.3) L 11/19/16 14:14 Globulin 3.7 gm/dL 11/19/16 14:14 Albumin/Globulin Ratio 0.8 (1.0-1.8) L 11/19/16 14:14 Triglycerides 307 mg/dL (<150) H 11/18/16 19:40 Cholesterol 106 mg/dL (<200) 11/18/16 19:40 LDL Cholesterol Direct 39 mg/dL (75-193) L 11/18/16 19:40 HDL Cholesterol 36 mg/dL (23-92) 11/18/16 19:40 TSH 3.82 uIU/ml (0.34-5.60) 11/18/16 19:40 Serum , Qual NEGATIVE (NEGATIVE) 11/18/16 19:40 Urine Source CLEAN C 11/18/16 19:50 Urine Color YELLOW 11/18/16 19:50 Urine Clarity CLEAR (CLEAR) 11/18/16 19:50 Urine pH 6.0 (4.6 - 8.0) 11/18/16 19:50 Ur Specific Hodge 1.010 (1.005-1.030) 11/18/16 19:50 Urine Protein NEGATIVE mg/dL (NEGATIVE) 11/18/16 19:50 Urine Glucose (UA) NEGATIVE mg/dL (NEGATIVE) 11/18/16 19:50 Urine Ketones NEGATIVE mg/dL (NEGATIVE) 11/18/16 19:50 Urine Blood NEGATIVE (NEGATIVE) 11/18/16 19:50 Urine Nitrate NEGATIVE (NEGATIVE) 11/18/16 19:50 Urine Bilirubin NEGATIVE (NEGATIVE) 11/18/16 19:50 Urine Urobilinogen 0.2 E.U./dL (0.2 - 1.0) 11/18/16 19:50 Ur Leukocyte Esterase NEGATIVE (NEGATIVE) 11/18/16 19:50 Urine RBC NONE SEEN /hpf (0-5) 11/18/16 19:50 Urine WBC NONE SEEN /hpf (0-5) 11/18/16 19:50 Ur Epithelial Cells NONE SEEN /lpf (FEW) 11/18/16 19:50 Urine Bacteria NONE SEEN /hpf (NONE SEEN) 11/18/16 19:50 Salicylates < 25.0 mg/L (30.0-100.0) L 11/18/16 19:40 Urine Opiates Screen NEGATIVE (NEGATIVE) 11/18/16 19:50 Urine Methadone Screen NEGATIVE (NEGATIVE) 11/18/16 19:50 Acetaminophen < 10.0 ug/mL (10.0-30.0) L 11/18/16 19:40 Ur Barbiturates Screen NEGATIVE (NEGATIVE) 11/18/16 19:50 Valproic Acid 71.0 ug/mL (50.0-100.0) 11/18/16 19:40 Ur Tricyclics Screen NEGATIVE (NEGATIVE) 11/18/16 19:50 Ur Phencyclidine Scrn NEGATIVE (NEGATIVE) 11/18/16 19:50 Amphetamines Screen NEGATIVE (NEGATIVE) 11/18/16 19:50 U Methamphetamines Scrn NEGATIVE (NEGATIVE) 11/18/16 19:50 U Benzodiazepines Scrn NEGATIVE (NEGATIVE) 11/18/16 19:50 U Cocaine Metab Screen NEGATIVE (NEGATIVE) 11/18/16 19:50 U Cannabinoids Screen NEGATIVE (NEGATIVE) 11/18/16 19:50 Ethyl Alcohol < 10 mg/dL (0-10) 11/18/16 19:40 RPR NONREACTIVE (NONREACTIVE) 11/18/16 19:40 - Physical Exam Vitals and I&O: Vital Signs Temp 97.6 F 11/24/16 04:00 Pulse 74 11/24/16 04:00 Resp 18 11/24/16 04:00 BP 126/66 11/24/16 04:00 Pulse Ox 98 11/24/16 04:00 Intake & Output 11/23/16 11/24/16 11/24/16 18:59 06:59 18:59 Intake Total 1400 200 Balance 1400 200 Weight (lbs) 80.739 kg 80.739 kg Intake: Oral 1400 200 Other: # Voids 4 3 # Bowel Movements 1 0 Active Medications: Current Medications Acetaminophen (Tylenol) 650 mg PO Q4HR PRN PRN Reason: Pain (Mild) Stop: 01/17/17 23:09 Last Admin: 11/19/16 12:18 Dose: 650 mg Amantadine HCl (Symmetrel) 100 mg PO DAILY [facility] Stop: 01/18/17 08:59 Last Admin: 11/23/16 09:03 Dose: 100 mg Benztropine Mesylate (Cogentin) 1 mg PO DAILY [facility] Stop: 01/18/17 08:59 Last Admin: 11/23/16 09:04 Dose: 1 mg Divalproex Sodium (Depakote Er) 500 mg PO BID [facility] PRN Reason: Protocol Stop: 01/18/17 08:59 Last Admin: 11/23/16 17:20 Dose: 500 mg Dorzolamide HCl (Trusopt 2% Ophth Soln) 1 drop EACH EYE TID [facility] Stop: 01/18/17 08:59 Last Admin: 11/23/16 21:28 Dose: 1 drop Insulin Aspart (Novolog Insulin Sliding Scale) 0 units SUBQ ACHS [facility] PRN Reason: Protocol Stop: 01/18/17 07:29 Last Admin: 11/24/16 07:07 Dose: 2 units Levothyroxine Sodium (Synthroid) 0.025 mg PO QDAC [facility] Stop: 01/18/17 07:29 Last Admin: 11/24/16 07:08 Dose: 0.025 mg Metformin HCl (Glucophage) 1,000 mg PO BID [facility] Stop: 01/18/17 08:59 Last Admin: 11/23/16 17:19 Dose: 1,000 mg Miscellaneous (Norgestimate-Ethinyl Estradiol [Trinessa Tablet]) 1 tab PO DAILY [facility] Stop: 01/18/17 08:59 Mupirocin (Bactroban Oint) 1 appl NS BID [facility] Stop: 11/25/16 09:01 Last Admin: 11/23/16 17:20 Dose: 1 appl Propranolol HCl (Inderal) 10 mg PO BID [facility] Stop: 01/18/17 08:59 Last Admin: 11/23/16 17:20 Dose: 10 mg Risperidone (Risperdal) 0.5 mg PO TID [facility] PRN Reason: Protocol Stop: 01/19/17 14:59 Last Admin: 11/23/16 21:26 Dose: 0.5 mg Timolol Maleate (Timoptic 0.5% Ophth Soln) 1 drop EACH EYE DAILY [facility] Stop: 01/18/17 08:59 Last Admin: 11/23/16 09:08 Dose: 1 drop Trazodone HCl (Desyrel) 50 mg PO HS PRN; Protocol PRN Reason: Insomnia Stop: 01/17/17 23:09 Last Admin: 11/23/16 21:27 Dose: 50 mg General: Alert, Oriented x3, Cooperative HEENT: Atraumatic, PERRLA, EOMI Neck: Supple Cardiovascular: Regular rate, Normal S1, Normal S2 Lungs: Clear to auscultation Abdomen: Bowel sounds, Soft Extremities: Other (no cyanosis,clubbing,edema.) Skin: Rash Psych/Mental Status: Mental status NL Assessment/Plan - Assessment Assessment: Presyncopal episode. Hypothyroidism. Parkinson's disease. Diffuse DJD. Fall risk. Hypertension. Psychiatric disorder exacerbation. Glaucoma. - Plan Plan: Psych follow-up. Neurology follow-up. General nursing care. Symptoms management. Fall precautions. Continue current treatment plan for her chronic illnesses. Patient is stable for discharge to psych facility. Nutritional Asmnt/Malnutr-PDOC - Dietary Evaluation Malnutrition Findings (Please click <Entered> for more info): Nutritional Asmnt/Malnutrition Start: 11/19/16 15: 08 Text: Status: Complete Freq: Document 11/20/16 17:51 [facility] (Rec: 11/20/16 18:00 [facility] [id number]) Nutritional Asmnt/Malnutrition Patient General Information Nutritional Screening Consult Diagnosis Syncope, newly diagnosed DM Pertinent Medical Hx/Surgical Hx Schizophrenia, glaucoma, SIADH , hypothyroidism, Parkinson's disease, seizure disorder Subjective Information Nutrition Consult for uncontrolled DM received and completed. Pt is a 46-year-old female from [facility] admitted with chief complaint of dizziness and syncope. Pt was awake and alert, able to provide nutritional hx. Pt appears obese with no signs of muscle or fat depletion. Pt reports having a fair appetite, eating 5 small meals throughout the day. Wt has been stable thought she is unsure if her UBW. Pt reports having a family hx of DM and was told many years ago that she may have borderline DM. RD offered diet/nutrition education but pt declined at this time. Current Diet Order/ Nutrition Support CCHO, low sodium, mechanical soft ground Patient / S.O Indicated Pertinent Medications Depakote, Novolog, Glucophage Pertinent Labs (11/18) Glucose 371H, A1C 9.3H, Triglyceride 307H (11/19) Na 128L, Glucose 224H, POC Glucose 131-292H Nutritional Hx/Data Height 1.57 m Height (Calculated Centimeters) 157.5 Current Weight (lbs) 82.055 kg Weight (Calculated Kilograms) 82.1 Weight (Calculated Grams) 06903.9 Usual body Weight (lbs) 181 % Usual Body Weight 100 [place] Body Weight 110 % [place] Body Weight 165 Recent Weight Change No Weight Status Obese GI Symptoms GI Symptoms None Difficult in: Chewing Food Allergies No Usual diet at home Low fat diet, small portion Skin Integrity/Comment: Ziyad 21. Skin intact. Current %PO Fair (50-74%) Estimated Nutritional Goals BEE in Kcals: Adj wt of IBW Calories/Kcals/Kg Based on IBW 50 kg Kcals Calculated 9666-6017 kcals/day (25-30 kcals/kg) Protein: Adj wt of IBW Protein g/kg: Based on IBW 50 kg Protein Calculated 50 gm/day (1 gm/kg) Fluid: ml 6113-7607 ml/day (30-35 ml/kg) or per MD/DO due to abnormal electrolytes Nutritional Problem 1. Problem Problem Altered nutrition-related laboratory value related to Etiology newly diagnosed diabetes mellitus as evidenced by Signs/Symptoms: admitting glucose 371 mg/dl and A1C 9.3%. Malnutrition Alert Protein-Calorie Malnutrition N/A Is there a minimum of two criteria No selected? Query Text:Check all the applicable criteria. A minimum of two criteria are recommended for diagnosis of either severe or non-severe malnutrition. Malnutrition Related to Morbid Obesity Malnutrition related to morbid obesity No Intervention/Recommendation Recommendations by RD Dietary Education by RD1 Decrease Calorie Intake Comments 1. Recommened mechanical soft ground, CCHO-45 GM, low sodium diet for glycemic control and to better meet estimated nutritional needs. 2. Will reinforce and educate on carbohydrate counting and DM management at follow up. Expected Outcomes/Goals Expected Outcomes/Goals Blood glucose will trend towards desired paramters. Physician Parameters for PEM Serum Albumin (g/dl) 2.4 - 3.0 (Moderate)
[2016-11-24] MEDS: Benztropine 1 MG TAB PO SCH (09:25)
--- NOTE | 2016-11-24 18:53 | Progress Notes ---
DATE: 11/24/2016 SUBJECTIVE: The patient was seen, chart reviewed, and discussed with staff. The patient remains anxious, irritable, voices are dissipating, remains withdrawn, states she feels "a little better." The patient tried to leave the hospital a few days ago, but no plans for basic food, clothing and intermediate. Sleeping fairly well, eating with prompting. ASSESSMENT: The patient needs continued monitoring still with some psychotic symptoms, but it appears that she does seem to be improving. She is here because of mainly violent and aggressive behaviors at the shelter. PLAN: We will continue to monitor. We will change Risperdal dosing over the next few days, then make appropriate adjustments. We will monitor closely for any overt medication side effects. The patient is currently on Risperdal 0.5 mg t.i.d. for a total daily dose of 1.5 mg, we will increase to 1 mg twice daily. [facility]# [id number]
--- NOTE | 2016-11-25 10:30 | Discharge Summary ---
DATE OF DISCHARGE: 11/24/2016 PRINCIPAL DIAGNOSES: 1. Presyncopal episode. 2. Newly diagnosed diabetes mellitus. 3. Parkinsonism features. 3. Left ventricular hypertrophy by 2D echocardiogram. 4. Psychotic disorder exacerbation. 5. Glaucoma. 6. Hypothyroidism. 7. Degenerative joint disease. 8. High risk for fall. REASON FOR ADMISSION: A 46-year-old female admitted to medical floor for evaluation of presyncopal episode by Dr. Chery and I took over the service after he admitted the patient. The patient was evaluated by neurologist, cdl truck driver, as well as the psychiatrist based on her history and symptoms. Extensive workup was sent, which was negative for any significant pathology contributing factor for her presyncopal episode, it was suspected that the patient's presyncopal episode mostly medication related. The patient was also diagnosed with diabetes mellitus, which was treated with metformin and regular sliding scale insulin. The patient was seen by psychiatrist and noted that the patient was suicidal and hearing voices. The patient was placed on 14-day hold and the patient was transferred to Geropsych Unit for further care. The patient will be followed by myself, as well as the psychiatrist. At the time of transfer all of her meds are reconciled . JOB# [id number]
== END 2016-11-24 23:20 | DRG 638 ==
LOC: ER 19:28 → TELE 23:00 → MSI 11-23 09:23
PROVIDERS: ADMIT Internal Medicine; ATTEND Internal Medicine
DX: E11.65 Type 2 diabetes mellitus with hyperglycemia (principal); E22.2 Syndrome of inappropriate secretion of antidiuretic hormone; G20 Parkinson's disease; F20.9 Schizophrenia, unspecified; R55 Syncope and collapse; F29 Unspecified psychosis not due to a substance or known physiological condition; E03.9 Hypothyroidism, unspecified; I10 Essential (primary) hypertension; H40.9 Unspecified glaucoma; E66.9 Obesity, unspecified; F31.9 Bipolar disorder, unspecified; I51.7 Cardiomegaly; G40.909 Epilepsy, unspecified, not intractable, without status epilepticus; M19.90 Unspecified osteoarthritis, unspecified site; Z88.6 Allergy status to analgesic agent; Z88.0 Allergy status to penicillin; Z83.3 Family history of diabetes mellitus; Z82.49 Family history of ischemic heart disease and other diseases of the circulatory system; Z91.81 History of falling; Z68.32 Body mass index [BMI] 32.0-32.9, adult
CPT/HCPCS: 36415-UA; 70450-TC; 80053-TC; 80061-TC; 80164-TC; 80307; 80320-TC; 80329-TC; 81001-TC; 82550-TC; 82948-90; 83036-90; 83880-TC; 84443-TC; 84484-TC; 84703-TC; 85025-TC; 85610-TC; 86592-TC; 93005; 93880-TC; 94760; J1815; Z7610

== ENCOUNTER 2016-11-24 21:30 | Inpatient (IN) | payer MEDICARE, MEDICAID ==
[2016-11-25 01:11] VITALS: BP 133/88
[2016-11-25] MEDS: Levothyroxine 0.025 Mg Tab PO SCH (06:49)
[2016-11-25] MEDS: INSULIN ASPART SLIDING SCALE 100 UNITS/ML UNIT SUBQ SCH ×5 (06:49→21:01)
--- NOTE | 2016-11-25 10:22 | History & Physical ---
ADMIT DATE: PATIENT IDENTIFICATION: A 46-year-old female. REQUESTING PHYSICIAN: Dr. Hilario. REASON: Medical management. HISTORY OF PRESENT ILLNESS: A 46-year-old female admitted under my service on the medical floor for evaluation of dizziness and syncopal episode. The patient's workup was negative and unremarkable, though patient was having significant psychiatric disorder exacerbation with episode of suicidal ideation and hearing voices. The patient was seen by psychiatrist and placed on 14 days hold and the patient was transferred to the psych unit for further care. PAST MEDICAL HISTORY: Remarkable for: 1. Parkinsonism. 2. Hypothyroidism. 3. Seizure disorder. 4. Diabetes mellitus. 5. Degenerative joint disease. 6. SIADH. MEDICATIONS: At the time of transfer has been reconciled appropriately. ALLERGIES: THE PATIENT IS ALLERGIC TO NSAID'S. SOCIAL HISTORY: She is a resident of [facility]. She does not smoke, does not drink. FAMILY MEDICAL HISTORY: Remarkable for diabetes and hypertension. REVIEW OF SYSTEMS: The patient currently denies any headache, blurred vision, double vision, dysphagia, odynophagia, runny nose, stuffy nose, fever, chills, cough, chest pain, shortness of breath, palpitation, dizziness, nausea, vomiting, diarrhea, dysuria, hematuria, hematochezia, melena. No seizure or syncopal episode. PHYSICAL EXAMINATION: GENERAL: The patient is alert, awake, oriented, lying in the bed without any acute distress. VITAL SIGNS: Temperature 98.1, pulse 87, respiratory rate 18, blood pressure 138/78. SKIN: Warm to touch. HEENT: Normocephalic, atraumatic. Extraocular muscles are intact. Tongue was pink and coated. Poor dentition noted. NECK: Supple, no JVD, no hepatojugular reflex, thyromegaly or carotid bruit. HEART: Both heart sounds are regular. No S3, no S4, no murmur. CHEST: Lung equal in expansion with no expiratory wheezing. ABDOMEN: Protuberant, soft. No guarding, no rigidity. Bowel sounds are present. No palpable mass. EXTREMITIES: No edema, no cyanosis. NEUROLOGIC: Alert, awake, follows commands. Decreased power throughout the upper and lower is noted with no calf tenderness, evidence of involuntary tremor noted. AVAILABLE DIAGNOSTIC DATA: Has been reviewed. CLINICAL IMPRESSION: 1. Psychiatric disorder exacerbation. 2. Diabetes mellitus. 3. Hypertension. 4. Hypothyroidism. 5. Degenerative joint disease. 6. Glaucoma. 7. Height risk for fall. 8. Debility. PLAN: 1. Psychiatric evaluation and management, deferred to psychiatrist. 2. Appropriate home medicine reconciliation. 3. Diabetes management. 4. Fall precautions. 5. General nursing care. 6. Follow lab. 7. We will continue to follow this patient during her stay at the hospital. 8. Care plan reviewed and discussed with staff. JOB# [id number]
--- NOTE | 2016-11-25 21:28 | Psychosocial Evaluation ---
DATE OF SERVICE: 11/25/2016 JUSTIFICATION FOR HOSPITALIZATION: The patient came from [facility], aggressive, agitated, throwing things at staff and worsening hallucinations. CHIEF COMPLAINT: Psychotic and mood decompensation. HISTORY OF PRESENT ILLNESS: A 46-year-old female with history of what appears to be schizophrenia, was hearing voices, worsening paranoid at [facility] and becoming aggressive with psychotic agitation, throwing things at staff, paranoid towards staff, sleep fair, appetite fair, noting psychological distress, patient tried to leave the hospital over the med/surg unit and I had to put on a 14-day hold. PAST PSYCHIATRIC HISTORY: Admissions in the past for depression and schizophrenia. FAMILY HISTORY: Grandmother with depression. MEDICAL HISTORY: Please see full H and P. SOCIAL HISTORY: The patient was born in [place], not , no kids, no drugs, no alcohol, no tobacco. MEDICATIONS: Reviewed. MENTAL STATUS EXAMINATION: Stated age. Fair eye contact. Speech was within normal limits. Mood "not good." Affect flat. Thought processes were linear. Thought content, no overt SI or HI, but she is alluding to paranoia hallucinations. Poor insight, poor judgment, poor impulse control. PROVISIONAL DIAGNOSES: Schizophrenia, depression, unspecified; also anxiety, unspecified. MEDICAL: Please see full H and P. ESTIMATED LENGTH OF STAY: 5-7 days. ASSESSMENT: The patient requiring inpatient hospitalization, aggressive at the jail, combative, psychosis. PLAN: Continue to titrate medications. TREATMENT PLAN: Includes group as well as milieu therapy. CONDITIONS FOR DISCHARGE: Improved mood, improved affect, cessation of any SI or HI, better control of her aggressive symptoms and also better control of her psychotic symptoms. JOB# [id number]
[2016-11-26] MEDS: INSULIN ASPART SLIDING SCALE 100 UNITS/ML UNIT SUBQ SCH ×4 (06:47→20:15)
[2016-11-26] MEDS: Levothyroxine 0.025 Mg Tab PO SCH (06:48)
[2016-11-26] MEDS ORDERED: Levothyroxine 0.025 Mg Tab PO SCH (07:30)
[2016-11-26] MEDS ORDERED: NORGESTIMATE ETHINYL ESTRADIOL PO SCH (09:00)
[2016-11-26] MEDS ORDERED: Benztropine 1 MG TAB PO SCH (09:00)
--- NOTE | 2016-11-27 01:44 | Progress Notes ---
DATE: 11/26/2016 SUBJECTIVE: The patient seen, chart reviewed, discussed with staff. The patient seems to be improving. She is feeling more motivated and hopeful and optimistic. She spent quite to a bit of time on the Med/Surg Unit and seems to have made an improvement over there. She is fairly symptomatic at this time, no SI, no HI. No overt psychotic symptoms. She does appear motivated for treatment, no violent episodes, no aggressive episodes, also doing well with increased dosing of Risperdal, sleeping well, eating well. ASSESSMENT: The patient does seem to be making an improvement, her mood is improved, and she is feeling robustly better. PLAN: We will prepare for her disposition. Staff noting improvement. No events, no overt signs or symptoms of suicidality. No aggressiveness noted, no agitation noted. No psychosis noted. JOB# [id number]
[2016-11-27] MEDS: Levothyroxine 0.025 Mg Tab PO SCH (06:45)
[2016-11-27] MEDS: INSULIN ASPART SLIDING SCALE 100 UNITS/ML UNIT SUBQ SCH ×2 (06:45→12:35)
--- NOTE | 2016-11-27 21:29 | Discharge Summary ---
DATE OF DISCHARGE: 11/27/2016 IDENTIFYING INFORMATION: The patient is a 46-year-old female. REASON FOR THE ADMISSION: The patient was transferred from the medical floor until I saw her there. She was hearing voices at the time and I recommended increasing her medication Risperdal with a history of agitation and throwing things at the staff at the nursing facility, paranoid towards the staff. She has prior admission to this facility. COURSE IN THE HOSPITAL: The patient was started back on her medication, which was Risperdal; it was increased to 1 mg twice a day. Depakote was continued at 500 mg twice a day. Continue with trazodone 50 mg at bedtime as needed, timolol for her eyes, Inderal, metformin, levothyroxine, insulin, benztropine, amantadine. The patient progressively got better. She was no longer acting in anyway danger. Actually when I first met her, she denies any intent to harm herself and though she is much calmer, so as she improved, she will be going back to the nursing facility. She has been acting in any way dangerous here. So we thought she could be discharged to a lesser level of care. FINAL DIAGNOSES: AXIS I: Chronic undifferentiated schizophrenia. Depression not otherwise specified, and anxiety not otherwise specified. The patient will be going back to the nursing facility. FOLLOWUP: With the psychiatrist, primary care physician, and therapist. EXPECTED OUTCOME: Dr. Hilario will go to the senior care where she lives. EXPECTED OUTCOME: Stable if the patient complies with the above. [facility]# [id number]
== END 2016-11-27 14:30 | DRG 885 ==
LOC: GERO 21:30
PROVIDERS: ADMIT Psychiatry & Neurology Psychiatry; ATTEND Psychiatry & Neurology Psychiatry
DX: F20.5 Residual schizophrenia (principal); G20 Parkinson's disease; E11.9 Type 2 diabetes mellitus without complications; R45.851 Suicidal ideations; G40.909 Epilepsy, unspecified, not intractable, without status epilepticus; I10 Essential (primary) hypertension; F41.9 Anxiety disorder, unspecified; E03.9 Hypothyroidism, unspecified; M19.90 Unspecified osteoarthritis, unspecified site; H40.9 Unspecified glaucoma; F32.9 Major depressive disorder, single episode, unspecified; Z91.81 History of falling; Z88.0 Allergy status to penicillin; Z88.6 Allergy status to analgesic agent
CPT/HCPCS: 82948-90; J1815; Z7610